=== PATIENT | male | born 1940 | race Caucasian/White ===

== ENCOUNTER 2017-03-03 20:36 | Inpatient (IN) | payer MEDICARE, BC ==
[2017-03-03 21:31] LABS: HEMATOCRIT 38.3 % (41.0-60); HEMOGLOBIN 12.6 gm/dL (12-16); MEAN CELL VOLUME 93.4 fl (80-99); MEAN CORPUSCULAR HEMOGLOBIN 30.8 pg (27.0-31.0); PLATELET COUNT 73 Th/cmm (150-400); RED CELL DISTRIBUTION WIDTH 16.1 % (11.5-20.0); WHITE BLOOD COUNT 9.3 Th/cmm (4.8-10.8)
[2017-03-03] MEDS ORDERED: cefTRIAXone 1 GM in Sodium Chloride 0.9% 50 ML IV ONE (21:34)
[2017-03-03 21:39] LABS: INR 0.98 (0.5-1.4); PROTHROMBIN TIME (TEST) 10.2 SECONDS (9.5-11.5)
[2017-03-03 21:48] LABS: ALB/GLOB RATIO 1.8 (1.0-1.8); ALKALINE PHOSPHATASE 32 U/L (34-104); ANION GAP 16.8 (7.0-16.0); BILIRUBIN,TOTAL 0.8 mg/dL (0.3-1.0); BUN - UREA NITROGEN 70 mg/dL (7-25); BUN/CREATININE RATIO 31.8; CALCIUM SERUM 9.1 mg/dL (8.6-10.3); CARBON DIOXIDE 19.8 mEq/L (21.0-31.0); CHLORIDE 97 mEq/L (98-107); CHOLESTEROL 172 mg/dL (<200); CREATININE - SERUM 2.2 mg/dL (0.7-1.3); GLUCOSE 150 mg/dL (70-105); POTASSIUM SERUM 4.6 mEq/L (3.5-5.1); SGOT 17 U/L (13-39); SGPT/ALT 18 U/L (7-52); SODIUM SERUM 129 mEq/L (136-145); TRIGLYCERIDES 160 mg/dL (<150)
[2017-03-03 22:05] LABS: BAND NEUTROPHILE 5 % (0-10); BASOPHIL 0 % (0-3); EOSINOPHIL 0 % (0-5); NEUTROPHILS 89 % (40-80); PLATELET ESTIMATE DECREASED PLATELETS (NORMAL); PLATELET MORPHOLOGY NORMAL (NORMAL); TOTAL CELLS COUNTED 100
--- NOTE | 2017-03-03 22:42 | ED Physician Chart ---
ED Chief Complaint/HPI - Patient Information Date Seen:: 03/03/17 Time Seen:: 20:40 Chief Complaint:: Fever History of Present Illness:: onset x one day of fever, cough, and congestion; no report of trauma, H/As, S/T , neck pain, C/P, SOB, Abd. Pain, A/N/V/D/C, chills, or urinary s/s Allergies:: Allergies Allergy/AdvReac Type Severity Reaction Status Date / Time levofloxacin [From Levaquin] Allergy Verified 03/03/17 20:40 sulfamethoxazole Allergy Verified 03/03/17 20:40 [From Bactrim] trimethoprim [From Bactrim] Allergy Verified 03/03/17 20:40 warfarin Allergy Verified 03/03/17 20:40 Vitals:: Vital Signs - 8 hr 03/03/17 20:40 Temp 18 F HR 86 BP 111/61 O2 Sat % 93 Historian:: Patient, EMS Review:: Nurse's Note Reviewed, EMS run form Reviewed, Transfer documents Reviewed ED Review of Systems - Review of Systems General/Constitutional: Fever, Chills, No weight loss, Weakness, No diaphoresis , No edema, No loss of appetite Skin: Skin lesions, No rash, No bruising Head: No headache, No light-headedness Eyes: No loss of vision, No pain, No diplopia ENT: No earache, No nasal drainage, No sore throat, No tinnitus Neck: No neck pain, No swelling, No thyromegaly, No stiffness, No mass noted Cardio Vascular: Chest pain, Palpitations, No PND, No orthopnea, No edema Pulmonary: SOB, Cough, No sputum, No wheezing GI: No nausea, No vomiting, No diarrhea, No pain, No melena, No hematochezia, No constipation, No hematemesis G/U: No dysuria, No frequency, No hematuria Musculoskeletal: No bone or joint pain, No back pain, No muscle pain Endocrine: No polyuria, No polydipsia Psychiatric: No prior psych history, No depression, No anxiety, No suicidal ideation Hematopoietic: No bruising, No lymphadenopathy Allergic/Immuno: No urticaria, No angioedema Neurological: No syncope, No focal symptoms, No weakness, No paresthesia, No headache, No seizure, No dizziness, No confusion, No vertigo ED Past Medical History - Past Medical History Obtainable: Yes Past Medical History: No significant medical hx, CAD, Asthma/COPD, DVT/PE, Dyslipidemia, ESRD, Other (Lymphoma) Family History: Diabetes Melitus, HTN, Cancer, DVT/PE Social History: Smoker, No Alcohol, No Drug Use, Single, Care Facility Surgical History: other (Biopsy; Brain Surgery) Psychiatricy History: None Medication: Reviewed Family Medical History - Family Member Mother History Unknown: Yes ED Physical Exam - Physical Examination General/Constitutional: Awake, Well-developed, well-nourished, Alert, No distress, GCS 15, Non-toxic appearing, Ambulatory Head: Atraumatic Eyes: Lids, conjuctiva normal, PERRL, EOMI Skin: Nl inspection, No rash, No skin lesions, No ecchymosis, Well hydrated, No lymphadenopathy ENMT: External ears, nose nl, Nasal exam nl, Lips, teeth, gums nl Neck: Nontender, Full ROM w/o pain, No JVD, No nuchal rigidity, No bruit, No mass, No stridor Respiratory: Nl effort/Exclusion Other Respiratory comments:: Lungs: + Rales and Rhonchi Cardio Vascular: RRR, No murmur, gallop, rubs, NL S1 S2 GI: No tenderness/rebounding/guarding, No organomegaly, No hernia, Normal BS's, Nondistended, No mass/bruits, No McBurney tenderness : No CVA tenderness Extremities: No tenderness or effusion, Full ROM, normal strength in all extremities, No edema, Normal digits & nails Neuro/Psych: Alert/oriented, DTR's symmetric, Normal sensory exam, Normal motor strength, Judgement/insight normal, Mood normal, Normal gait, No focal deficits Misc: Normal back, No paraspinal tenderness ED Labs/Radiology/EKG Results - Lab Results Results: Laboratory Tests 03/03/17 03/03/17 03/03/17 21:04 21:04 21:04 WBC 9.3 RBC 4.10 Hgb 12.6 Hct 38.3 L MCV 93.4 MCH 30.8 MCHC Differential 33.0 RDW 16.1 Plt Count 73 L MPV 8.0 Band Neutrophils % 5 Neutrophils (Manual) 89 H Lymphocytes 4 L Monocytes 2 Eosinophils 0 Basophils 0 Platelet Estimate DECREASED PLATELETS Platelet Morphology NORMAL RBC Morph Micro Appear NORMAL PT INR PTT (Actin FS) D-Dimer 3820 H Sodium 129 L Potassium 4.6 Chloride 97 L Carbon Dioxide 19.8 L Anion Gap 16.8 H BUN 70 H Creatinine 2.2 H Est GFR ( Amer) TNP Est GFR (Non-Af Amer) TNP BUN/Creatinine Ratio 31.8 Glucose 150 H Whole Bld Lactic Acid Calcium 9.1 Total Bilirubin 0.8 AST 17 ALT 18 Alkaline Phosphatase 32 L Creatine Kinase 24 L B-Natriuretic Peptide 156.0 H Total Protein 5.9 L Albumin 3.8 L Globulin 2.1 Albumin/Globulin Ratio 1.8 Triglycerides 160 H Cholesterol 172 LDL Cholesterol Direct 70 L HDL Cholesterol 76 03/03/17 03/03/17 21:04 21:04 WBC RBC Hgb Hct MCV MCH MCHC Differential RDW Plt Count MPV Band Neutrophils % Neutrophils (Manual) Lymphocytes Monocytes Eosinophils Basophils Platelet Estimate Platelet Morphology RBC Morph Micro Appear PT 10.2 INR 0.98 PTT (Actin FS) 21.9 L D-Dimer Sodium Potassium Chloride Carbon Dioxide Anion Gap BUN Creatinine Est GFR ( Amer) Est GFR (Non-Af Amer) BUN/Creatinine Ratio Glucose Whole Bld Lactic Acid 5.69 H* Calcium Total Bilirubin AST ALT Alkaline Phosphatase Creatine Kinase B-Natriuretic Peptide Total Protein Albumin Globulin Albumin/Globulin Ratio Triglycerides Cholesterol LDL Cholesterol Direct HDL Cholesterol Comments:: Na+: 129; BUN: 70; Cr: 2.2; D-Dimer: 3820; BNP: 156; Lactic Acid: 5.69 - Radiology Results Comments:: CXR: + Infiltrate - EKG Interpretations EKG Time:: 21:05 Rate & Rhythm: 82; NSR Comments:: non-specific st-t changes ED Septic Shock - . Is Septic Shock (SBP<90, OR Lactate>4 mmol\L) present?: No - <6hrs of presentation: Vital Signs: Vital Signs - 8 hr 03/03/17 20:40 Temp 18 F HR 86 BP 111/61 O2 Sat % 93 ED Reassessment (Disposition) - Reassessment Reassessment Condition:: Improved - Diagnosis Diagnosis:: Hyponatremia; Dehydration; ESRD; Renal Failure; Pre-Renal Azotemia; DVT; Pulmonary Embolus; PNA; Sepsis; - Aftercare/Follow up Instructions Aftercare/Follow-Up Instructions:: Counseled pt regarding lab results/diagnosis & need follow up, Counseled pt & family regarding lab results/diagnosis & need follow up - Patient Disposition Discharge/Transfer:: Acute Care w/in this hosp Accepting Physician:: Dr. Williamson Time Called:: 2214 Time Responded:: 22:15 Admitted to:: Telemetry Spoke to:: Dr. Williamson Admitting Medical Physician:: Dr. Williamson Condition at Disposition:: Stable, Improved
[2017-03-04] MEDS ORDERED: Maalox 30 mL Cup PO PRN (01:23)
[2017-03-04] MEDS ORDERED: Magnesium Hydroxide (MOM) 30 mL UDC PO PRN (01:23)
[2017-03-04] MEDS ORDERED: Hydrocodone/APAP 5mg/325mg Tab PO PRN (01:23)
[2017-03-04] MEDS ORDERED: Albuterol Nebulizer 2.5mg/3mL HHN PRN (01:57)
--- NOTE | 2017-03-04 07:33 | Diagnostic Imaging Report ---
CHEST X-RAY: AP view INDICATION: pain COMPARISON: None FINDINGS: Small bilateral effusions are noted with bibasal airspace disease. Biapical pleural thickening is seen. Cardiomegaly is noted. Left-sided Port-A-Cath is seen with tip not well-visualized and possibly the left brachiocephalic vein region. Degenerative changes of the spine are noted. IMPRESSION: Small bilateral effusions and bibasal airspace disease. Atelectasis versus infiltrate of the lung bases cannot be excluded. Ill-defined biapical thickening with mild prominence of the upper mediastinal borders. Lymphadenopathy or other mass lesions cannot be excluded. Short-term follow-up CT chest with IV contrast would provide additional detail and assessment. Cardiomegaly.
--- NOTE | 2017-03-04 08:04 | Diagnostic Imaging Report ---
Nuclear medicine VQ scan HISTORY: Shortness of breath, rule out pulmonary embolus COMPARISON: Chest x-ray the same day Technique/procedure: For the ventilation portion of examination 40.5 mCi of technetium labeled DTPA was administered via aerosol and multiple scintigraphic images of the lungs were obtained. For the perfusion portion of examination 5.2 millicuries of technetium 99 labeled MAA was administered intravenously and multiple scintigraphic images of the lungs were obtained. Exam is limited due to patient positioning and technical factors. There appears to be a moderate-sized matched defect along the peripheral aspect of the left lung best seen on the left lateral view. IMPRESSION: Limited exam. Overall the exam is low to intermediate probability VQ scan for pulmonary embolus. If clinically feasible CT angiography, PE study may be obtained for further assessment.
[2017-03-04] MEDS ORDERED: D5-0.45NS 1,000 ML IV SCH (09:00)
[2017-03-04] MEDS: Fluticasone Propionate 0.05mg/Actuation 16gm Nasal Spray NS SCH (09:00)
[2017-03-04] MEDS: Triamcinolone Acetonide 0.1% Cream 15 gm TP SCH ×2 (09:00→17:54)
[2017-03-04 09:28] LABS: ABG SOURCE Arterial; ALLEN TEST YES; BE(B) -3.2 mEq/L (-3.0-3.0); FIO2 100; HCO3 22.4 mEq/L (20.0-26.0); pH 7.36 (7.35-7.45)
[2017-03-04] MEDS ORDERED: Enoxaparin 100 mg/mL 1mL Syr SUBQ SCH (10:00)
--- NOTE | 2017-03-04 11:09 | Diagnostic Imaging Report ---
Portable chest x-ray HISTORY: Shortness of breath Compared with prior exam of March 03, 2017, the heart remains enlarged. Evidence of persistent left pleural effusion. Evidence of small right pleural effusion also noted. There remains abnormal density and widening of the mediastinum. Lymphadenopathy cannot be excluded. There appears to be narrowing of the lower trachea above the debra. A CT scan would provide additional assessment and evaluation. IMPRESSION: 1. Persistent marked mediastinal widening that may be associated with lymphadenopathy. Suggestion of a degree of narrowing of the lower trachea. A CT scan is recommended for further assessment and evaluation. 2. Cardiomegaly 3. Bilateral pleural effusions (left greater than right).
--- NOTE | 2017-03-04 11:25 | Diagnostic Imaging Report ---
Bilateral lower extremity DVT study HISTORY: Pain COMPARISON: None Technique: Longitudinal and transverse sonographic images of the bilateral lower extremity veins were obtained with doppler analysis. FINDINGS: Exam of the right side demonstrates thrombus extending from the right common femoral vein to the right superficial femoral vein. The remaining basal right lower extremity are patent. Exam of the left side demonstrates thrombus within the left common femoral, proximal left superficial femoral and left popliteal veins. The remaining veins of the left lower extremity are patent. IMPRESSION: Findings consistent with bilateral deep venous thrombosis. Please refer to above for details. The final results were administered to the referring team on 03/04/2017.
--- NOTE | 2017-03-04 14:08 | Diagnostic Imaging Report ---
Head CT without intravenous contrast Indication: pain, rule out bleed Comparison: None Technique: Axial images were obtained from the vertex to the skull base without IV contrast. Coronal reconstructions were made. Total DLP: 991, [id number] FINDINGS: Images of the brain obtained without contrast demonstrate no acute hemorrhage. No mass lesions identified. The ventricles and basal cisterns are patent. The hdez-white matter differentiation is preserved. There is no mass effect or midline shift. Mild atrophy is noted. No skull fractures identified. No soft tissue swelling. The paranasal sinuses are clear. IMPRESSION: No acute intracranial abnormality. Mild atrophy.
[2017-03-04] MEDS ORDERED: FUROSEMIDE IV ONE (14:10)
[2017-03-04] MEDS ORDERED: DEXTROSE 5% IV ONE (14:10)
[2017-03-04] MEDS: Albuterol/Ipratropium Neb 3 ML AERS HHN SCH ×3 (15:13→22:27)
--- NOTE | 2017-03-04 19:19 | Consultation ---
DATE OF CONSULTATION: 03/04/2017 HEMATOLOGY-ONCOLOGY CONSULTATION REFERRING PHYSICIAN: William Williamson M.D. REASON FOR CONSULTATION: Lymphoma and pulmonary embolism. HISTORY OF PRESENT ILLNESS: The patient is a 76-year-old male who has extensive medical history. He was recently hospitalized at [facility] and had mediastinoscopy with lymph node biopsy. The pathology is not available. He presented through the ER with shortness of breath and had lower extremity duplex confirming deep vein thrombosis in both lower extremities and V/Q scan was intermediate probability for pulmonary emboli. The patient is now requiring BiPAP and is on Levophed. His history is gathered from the records and from talking to the beside. The patient is on BiPAP, unable to provide any history. The records indicated that he had a history of non-Hodgkin lymphoma ____ of the retroperitoneum 3 or 4 years ago and was treated with chemotherapy. He has been short of breath in the past few weeks and that was the main reason for admission to [facility] on 02/08/2017. The patient also had a history of venous thrombosis and inferior vena cava filter placement and has a history of intracranial hemorrhage 3 years ago, chronic kidney disease and atrial fibrillation. PAST MEDICAL HISTORY: As mentioned above. SOCIAL HISTORY: Former smoker. . MEDICATIONS: Reviewed. He is on cefepime, ceftriaxone, Pepcid and Neurontin. He received one dose of 100 mg of Lovenox. PHYSICAL EXAMINATION: GENERAL: He is chronically ill looking, awake, follows commands, on BiPAP. VITAL SIGNS: Afebrile, blood pressure 95/51. HEENT: Atraumatic. NECK: Obese. There is a scar on the lower neck from mediastinoscopy. CHEST: Equal air entry. ABDOMEN: Obese, soft. EXTREMITIES: Hyperpigmentation on both lower extremities indication of chronic venous stasis. LABORATORY DATA: Platelets 73, white count and hemoglobin are normal. BUN 70, creatinine 2.2. V/Q scan intermediate probability venous duplex lower extremities as mentioned above. ASSESSMENT: Venous thrombosis in both lower extremities and pulmonary emboli in this patient with a history of lymphoma and presented with severe shortness of breath and impending respiratory failure as well as hypertension ____ the TPA would be administered; however, the patient has multiple comorbidities and history of intracranial bleed, that make the risk of using TPA is too high. Therefore, I will proceed with unfractionated heparin. After doing CT scan of the head, confirming there is no bleeding in the head ____ the patient and are concerned about that, the patient is not a candidate for bnf-hbinxtedx-lozxrm heparin with the elevated creatinine and BUN. I will also obtain the pathology from Natalie on the mediastinoscopy to guide the further management beyond this point. The patient is in a critical condition and all questions were answered to the at the bedside. Thank you, Dr. Williamson for the opportunity to participate in the care of this interesting case with you. JOB# [id number]
[2017-03-04] MEDS: Heparin 25,000 Units In D5W 25,000 UNITS/250 ML BAG IV PRN (19:40)
--- NOTE | 2017-03-04 20:59 | History & Physical ---
ADMIT DATE: 03/04/2017 CHIEF COMPLAINT: This patient basically came from residential and complaining of body aches and pains and the patient known to have extensive history of lymphoma. HISTORY OF PRESENT ILLNESS: The patient is 76-year-old. The patient has history of lymph node biopsy with short of breath and he has bilateral leg pain and also V/Q scan, which was negative. The patient was on BiPAP and has history of non-Hodgkin's lymphoma. The patient with history of thrombosis and history of intracranial hemorrhage 3 years ago. PAST MEDICAL HISTORY: Again history of non-Hodgkin's lymphoma, History of inferior vena cava filter placement, and also history of DVTs. The patient was initially admitted and later on the patient had a problem with a low blood pressure, was given fluids, was transferred to ICU, and sliver former saw the patient. PHYSICAL EXAMINATION: HEAD: Normal. ENT: Normal. LUNGS: Bilaterally clear. CARDIOVASCULAR SYSTEM: S1, S2 heard. ABDOMEN: Soft. Bowel sounds are heard. CENTRAL NERVOUS SYSTEM: Decreased sensorium. DIAGNOSES: Severe hypotension, history of lymphoma, venous thrombosis, history of respiratory distress with respiratory failure. PLAN: The patient is being admitted and I will go ahead and continue his antibiotics and we will have Dr. Lopez see the patient on ID and Dr. Nolasco see the patient on hematology, and also have Dr. Walsh see the patient. I will follow the patient. JOB# [id number]
[2017-03-04] MEDS: Cefepime 1 GM in Sodium Chloride 0.9% 50 ML IV SCH (21:06)
[2017-03-04] MEDS ORDERED: cefTRIAXone 1 GM in Sodium Chloride 0.9% 50 ML IV SCH (22:00)
[2017-03-05] MEDS: Albuterol/Ipratropium Neb 3 ML AERS HHN SCH ×6 (02:32→23:08)
--- NOTE | 2017-03-05 03:32 | Consultation ---
DATE OF CONSULTATION: 03/04/2017 PATIENT OF: William Williamson M.D. HISTORY AND PHYSICAL: This is a 76-year-old male patient who came to the Emergency Room and admitted to the regular floor for respiratory failure which gradually deteriorated. The patient became hypotensive with respiratory failure. The patient was put on BiPAP, Levophed and transferred to ICU and cardiac consult is requested. PAST MEDICAL HISTORY: Respiratory failure, atrial fibrillation, BPH, COPD, non-Hodgkin lymphoma with chemotherapy and mediastinotomy, DVT in both lower extremities with IVC filter, low back pain, obesity, rotator cuff tear. FAMILY HISTORY: Unremarkable. SOCIAL HISTORY: No history of smoking, alcohol abuse at the present time. ALLERGIES: The patient is allergic to Bactrim, Levaquin, and Coumadin. FAMILY HISTORY: Unremarkable. SOCIAL HISTORY: No history of smoking, alcohol abuse. PHYSICAL EXAMINATION: VITAL SIGNS: Blood pressure 70 systolic, on Levophed; pulse 100, irregular; respirations 28. HEAD: Normocephalic. No lumps or bumps. EYES: Pupils equal and reactive to light. Fundi show AV nicking. Sclerae white. Conjunctivae pink. NECK: Carotid 2+. Normal upstroke. JVD flat. Thyroid not palpable. Lymph nodes not palpable. CHEST: Shows increased AP diameter. No kyphosis, scoliosis. LUNGS: Bilateral bronchovesicular breath sounds. Bilateral wheezing, rhonchi, rales. HEART: PMI sixth intercostal space or lateral to midclavicular line. S1, S2. S3, S4. Systolic murmur, grade 2/6, lower left sternal border without radiation. ABDOMEN: Soft. Liver and spleen not palpable. No organomegaly. Bowel sounds active. NEUROLOGIC: Unremarkable. EXTREMITIES: Peripheral pulses 1+, pedal edema 2+. CLINICAL IMPRESSION: Acute respiratory failure, on BiPAP; hypotension, on Levophed; atrial fibrillation; BPH; COPD; non-Hodgkin lymphoma, DVT in both legs with IVC filter, low back pain, obesity, rotator cuff tear. The patient has intracranial hemorrhage secondary to anticoagulation. The patient is full code. CKD, stage II. PLAN: Admit the patient. We will start the patient on Levophed. No anticoagulation in view of cerebral bleed and control the heart rate, have pulmonary consult. Put the patient on BiPAP. JOB# [id number]
[2017-03-05 05:08] LABS: HEMATOCRIT 38.5 % (41.0-60); HEMOGLOBIN 12.8 gm/dL (12-16); MEAN CELL VOLUME 93.1 fl (80-99); MEAN CORPUSCULAR HEMOGLOBIN 31.1 pg (27.0-31.0); MEAN CORPUSCULAR HGB CONC 33.4 pg (28.0-36.0); MEAN PLATELET VOLUME 7.5 fl; PLATELET COUNT 76 Th/cmm (150-400); RED BLOOD COUNT 4.13 Mil/cmm (3.80-5.80); RED CELL DISTRIBUTION WIDTH 15.7 % (11.5-20.0); WHITE BLOOD COUNT 10.6 Th/cmm (4.8-10.8)
[2017-03-05 05:13] LABS: ALB/GLOB RATIO 1.9 (1.0-1.8); ALKALINE PHOSPHATASE 31 U/L (34-104); ANION GAP 18.2 (7.0-16.0); BILIRUBIN,TOTAL 0.9 mg/dL (0.3-1.0); BUN - UREA NITROGEN 79 mg/dL (7-25); BUN/CREATININE RATIO 31.6; CALCIUM SERUM 8.8 mg/dL (8.6-10.3); CARBON DIOXIDE 19.8 mEq/L (21.0-31.0); CHLORIDE 97 mEq/L (98-107); CREATININE - SERUM 2.5 mg/dL (0.7-1.3); GLUCOSE 146 mg/dL (70-105); MAGNESIUM 2.4 mg/dL (1.9-2.7); PHOSPHOROUS 6.6 mg/dL (2.5-5.0); SGOT 18 U/L (13-39); SGPT/ALT 17 U/L (7-52); SODIUM SERUM 130 mEq/L (136-145); URIC ACID 13.3 mg/dL (4.4-7.6)
[2017-03-05 06:17] LABS: URINE BILIRUBIN NEGATIVE (NEGATIVE); URINE BLOOD NEGATIVE (NEGATIVE); URINE GLUCOSE (UA) NEGATIVE (NEGATIVE); URINE KETONE NEGATIVE (NEGATIVE); URINE PROTEIN NEGATIVE (NEGATIVE); URINE UROBILINOGEN 0.2 E.U./dL (0.2 - 1.0)
[2017-03-05 06:33] LABS: URINE COLOR YELLOW
[2017-03-05 06:40] LABS: URINE BACTERIA OCCASIONAL /hpf (NONE SEEN); URINE EPITHELIAL CELLS OCCASIONAL /lpf (FEW); URINE RBC 0-2 /hpf (0-5); URINE WBC 0-2 /hpf (0-5)
[2017-03-05 07:23] LABS: BAND NEUTROPHILE 2 % (0-10); NEUTROPHILS 97 % (40-80); TOTAL CELLS COUNTED 100
[2017-03-05 07:24] LABS: PLATELET ESTIMATE DECREASED PLATELETS (NORMAL)
[2017-03-05 08:49] LABS: BE(B) -6.5 mEq/L (-3.0-3.0); HCO3 19.9 mEq/L (20.0-26.0); pH 7.27 (7.35-7.45)
[2017-03-05 08:50] LABS: ABG SOURCE Arterial; ALLEN TEST YES; FIO2 100; MECH RATE 14; PS 6
--- NOTE | 2017-03-05 08:50 | Diagnostic Imaging Report ---
Exam: Chest x-ray. HISTORY: Shortness of breath. Findings: Portable upright examination of chest at 0826 hours reviewed the study compared to prior exam of the early. The study again demonstrates left lower lobe infiltrate superimposed effusion. Small right pleural effusion is present. The heart is enlarged. Left subclavian catheter unchanged appearance. Bony thorax intact. IMPRESSION: Unchanged compared to prior examination of the earlier
[2017-03-05] MEDS: Triamcinolone Acetonide 0.1% Cream 15 gm TP SCH ×2 (09:24→17:34)
[2017-03-05] MEDS: Fluticasone Propionate 0.05mg/Actuation 16gm Nasal Spray NS SCH (09:24)
[2017-03-05] MEDS: Cefepime 1 GM in Sodium Chloride 0.9% 50 ML IV SCH ×2 (09:50→21:11)
--- NOTE | 2017-03-05 11:44 | Diagnostic Imaging Report ---
Exam: Chest portable upright HISTORY: Intubation. Findings: Portable examination of the chest upright at 1108 hours reviewed, compatible prior study the early demonstrates endotracheal tube with the tip 3 cm above the debra. Left subclavian catheter unchanged position. The heart is enlarged. There is evidence for left basilar infiltrate superimposed effusion unchanged upper approximation. Right basilar atelectasis and effusion appreciated. There is NG tube which passes into the stomach. Right basilar atelectasis small effusion appreciated. IMPRESSION: 1. Interval placement of endotracheal tube 3 cm above the debra. NG tube with tip in stomach. 2. Predominantly left base infiltrate with superimposed effusion unchanged compared to prior examination.
[2017-03-05] MEDS: Heparin 25,000 Units In D5W 25,000 UNITS/250 ML BAG IV PRN (12:00)
[2017-03-05 12:22] LABS: pH 7.26 (7.35-7.45)
[2017-03-05 12:23] LABS: ABG SOURCE Arterial; ALLEN TEST YES; HCO3 20.2 mEq/L (20.0-26.0); MECH RATE 16
[2017-03-05 12:24] LABS: FIO2 100; MECH VT 500
[2017-03-05] MEDS ORDERED: Probiotic Screen MC PRN (13:58)
--- NOTE | 2017-03-05 14:03 | General Progress Note ---
Subjective - Review of Systems Service Date: 03/05/17 Subjective: stuporous, on vent Objective - Results Result Diagrams: 03/05/17 04:38 03/05/17 04:38 Recent Labs: Laboratory Last Values WBC 10.6 Th/cmm (4.8-10.8) 03/05/17 04:38 RBC 4.13 Mil/cmm (3.80-5.80) 03/05/17 04:38 Hgb 12.8 gm/dL (12-16) 03/05/17 04:38 Hct 38.5 % (41.0-60) L 03/05/17 04:38 MCV 93.1 fl (80-99) 03/05/17 04:38 MCH 31.1 pg (27.0-31.0) H 03/05/17 04:38 MCHC Differential 33.4 pg (28.0-36.0) 03/05/17 04:38 RDW 15.7 % (11.5-20.0) 03/05/17 04:38 Plt Count 76 Th/cmm (150-400) L 03/05/17 04:38 MPV 7.5 fl 03/05/17 04:38 Band Neutrophils % 2 % (0-10) 03/05/17 04:38 Neutrophils (Manual) 97 % (40-80) H 03/05/17 04:38 Lymphocytes 1 % (20-50) L 03/05/17 04:38 Monocytes 2 % (2-10) 03/03/17 21:04 Eosinophils 0 % (0-5) 03/03/17 21:04 Basophils 0 % (0-3) 03/03/17 21:04 Platelet Estimate DECREASED PLATELETS (NORMAL) 03/05/17 04:38 Platelet Morphology NORMAL (NORMAL) 03/03/17 21:04 RBC Morph Micro Appear NORMAL (NORMAL) 03/03/17 21:04 Eos Smear Source URINE 03/05/17 05:30 Eos Smear Total Cells NONE SEEN (NONE SEEN) 03/05/17 05:30 PT 10.2 SECONDS (9.5-11.5) 03/03/17 21:04 INR 0.98 (0.5-1.4) 03/03/17 21:04 PTT (Actin FS) 122.2 SECONDS (26.0-38.0) H* 03/05/17 07:50 D-Dimer 3820 ng/mL (100-400) H 03/03/17 21:04 Specimen Source Arterial 03/05/17 12:15 Sample Site Right Radial 03/05/17 12:15 pH 7.26 (7.35-7.45) L 03/05/17 12:15 pCO2 47.0 mmHg (35.0-45.0) H 03/05/17 12:15 pO2 80.0 mmHg (80.0-100.0) 03/05/17 12:15 HCO3 20.2 mEq/L (20.0-26.0) 03/05/17 12:15 Base Excess -6.0 mEq/L (-3.0-3.0) L 03/05/17 12:15 O2 Saturation 94.0 % (92.0-100.0) 03/05/17 12:15 Adan Test YES 03/05/17 12:15 Vent Rate 16 03/05/17 12:15 Inspired O2 100 03/05/17 12:15 Tidal Volume 500 03/05/17 12:15 PEEP 5 03/05/17 12:15 Pressure (ins/psv/peep) NA 03/05/17 12:15 Critical Value E.BRENNAN 03/05/17 12:15 Sodium 130 mEq/L (136-145) L 03/05/17 04:38 Potassium 5.0 mEq/L (3.5-5.1) 03/05/17 04:38 Chloride 97 mEq/L (98-107) L 03/05/17 04:38 Carbon Dioxide 19.8 mEq/L (21.0-31.0) L 03/05/17 04:38 Anion Gap 18.2 (7.0-16.0) H 03/05/17 04:38 BUN 79 mg/dL (7-25) H 03/05/17 04:38 Creatinine 2.5 mg/dL (0.7-1.3) H 03/05/17 04:38 Est GFR ( Amer) TNP 03/05/17 04:38 Est GFR (Non-Af Amer) TNP 03/05/17 04:38 BUN/Creatinine Ratio 31.6 03/05/17 04:38 Glucose 146 mg/dL (70-105) H 03/05/17 04:38 POC Glucose 74 MG/DL (70 - 105) 03/04/17 08:34 Whole Bld Lactic Acid 2.77 mmol/L (0.60-1.99) H* 03/05/17 06:40 Uric Acid 13.3 mg/dL (4.4-7.6) H 03/05/17 04:38 Calcium 8.8 mg/dL (8.6-10.3) 03/05/17 04:38 Phosphorus 6.6 mg/dL (2.5-5.0) H 03/05/17 04:38 Magnesium 2.4 mg/dL (1.9-2.7) 03/05/17 04:38 Total Bilirubin 0.9 mg/dL (0.3-1.0) 03/05/17 04:38 AST 18 U/L (13-39) 03/05/17 04:38 ALT 17 U/L (7-52) 03/05/17 04:38 Alkaline Phosphatase 31 U/L (34-104) L 03/05/17 04:38 Ammonia 71 umol/L (16-53) H 03/05/17 04:38 Creatine Kinase 24 U/L (30-223) L 03/03/17 21:04 Troponin I 0.02 ng/mL (0.01-0.05) 03/03/17 21:04 B-Natriuretic Peptide 95.9 pg/mL (5.0-100.0) 03/05/17 04:38 Total Protein 5.7 gm/dL (6.0-8.3) L 03/05/17 04:38 Albumin 3.7 gm/dL (4.2-5.5) L 03/05/17 04:38 Globulin 2.0 gm/dL 03/05/17 04:38 Albumin/Globulin Ratio 1.9 (1.0-1.8) H 03/05/17 04:38 Triglycerides 160 mg/dL (<150) H 03/03/17 21:04 Cholesterol 172 mg/dL (<200) 03/03/17 21:04 LDL Cholesterol Direct 70 mg/dL (75-193) L 03/03/17 21:04 HDL Cholesterol 76 mg/dL (23-92) 03/03/17 21:04 TSH 0.37 uIU/ml (0.34-5.60) 03/05/17 04:38 Urine Source MIDSTREAM 03/05/17 05:30 Urine Color YELLOW 03/05/17 05:30 Urine Clarity CLEAR (CLEAR) 03/05/17 05:30 Urine pH 5.0 (4.6 - 8.0) 03/05/17 05:30 Ur Specific [place] 1.020 (1.005-1.030) 03/05/17 05:30 Urine Protein NEGATIVE mg/dL (NEGATIVE) 03/05/17 05:30 Urine Glucose (UA) NEGATIVE mg/dL (NEGATIVE) 03/05/17 05:30 Urine Ketones NEGATIVE mg/dL (NEGATIVE) 03/05/17 05:30 Urine Blood NEGATIVE (NEGATIVE) 03/05/17 05:30 Urine Nitrate NEGATIVE (NEGATIVE) 03/05/17 05:30 Urine Bilirubin NEGATIVE (NEGATIVE) 03/05/17 05:30 Urine Urobilinogen 0.2 E.U./dL (0.2 - 1.0) 03/05/17 05:30 Ur Leukocyte Esterase NEGATIVE (NEGATIVE) 03/05/17 05:30 Urine RBC 0-2 /hpf (0-5) H 03/05/17 05:30 Urine WBC 0-2 /hpf (0-5) 03/05/17 05:30 Ur Epithelial Cells OCCASIONAL /lpf (FEW) 03/05/17 05:30 Urine Bacteria OCCASIONAL /hpf (NONE SEEN) 03/05/17 05:30 Fine Granular Casts 2-5 /lpf (NONE SEEN) H 03/05/17 05:30 Urine Mucus FEW /lpf (FEW) 03/05/17 05:30 Ur Random Sodium < 10 mmol/L 03/05/17 05:30 Urine Creatinine 109.2 mg/dl (39.0-259.0) 03/05/17 05:30 - Physical Exam Vitals and I&O: Vital Signs Temp 97.1 F 03/05/17 11:00 Pulse 82 03/05/17 12:56 Resp 22 03/05/17 11:00 BP 103/59 03/05/17 11:00 Pulse Ox 96 03/05/17 12:56 Intake & Output 03/04/17 03/05/17 03/05/17 18:59 06:59 18:59 Intake Total 120 376.365 300 Output Total 625 200 Balance -505 176.365 300 Weight (lbs) 101.423 kg 102.115 kg Intake: Intake, IV Amount 226.365 300 Cefepime 1 gm In Sodium 50 50 Chloride 0.9% 50 ml @ 100 mls/hr IV Q12HR [facility] Rx#: [id number] Heparin 25,000 Units In 250 D5W 25,000 units In 250 ml @ Titrate IV TITR PRN Rx#:[id number] Norepinephrine 4 mg In 126.365 Dextrose 5% 250 ml @ 8 MCG/MIN 30.48 mls/hr IV TITR PRN Rx#:[id number] cefTRIAXone 1 gm In 50 Sodium Chloride 0.9% 50 ml @ 100 mls/hr IV Q24HR [facility] Rx#:[id number] Oral 120 150 Output: Urine 625 200 Other: # Voids 1 # Bowel Movements 0 0 Active Medications: Current Medications Acetaminophen (Tylenol) 650 mg PO Q6HR PRN PRN Reason: Pain (Mild) Stop: 05/03/17 01:22 Acetaminophen (Tylenol) 650 mg PO Q6HR PRN PRN Reason: Fever > 101 Stop: 05/03/17 01:22 Acetaminophen/Hydrocodone Bitart ([place] 5mg/325mg) 1 tab PO Q4HR PRN PRN Reason: Pain (Moderate) Stop: 05/03/17 01:22 Acetaminophen/Hydrocodone Bitart ([place] 5mg/325mg) 2 tab PO Q4HR PRN PRN Reason: Severe Pain Stop: 05/03/17 01:22 Al Hydrox/Mg Hydrox/Simethicone (Maalox) 15 ml PO Q3HR PRN PRN Reason: Indigestion Stop: 05/03/17 01:22 Albuterol Sulfate (Albuterol 2.5mg/3ml Neb Ud) 2.5 mg HHN Q4H PRN PRN Reason: Shortness of Breath or Wheeze Stop: 05/03/17 01:56 Last Admin: 03/04/17 08:17 Dose: 2.5 mg Albuterol/Ipratropium (Duoneb Neb) 3 ml HHN Q4HRT [facility] Stop: 05/03/17 14:59 Last Admin: 03/05/17 12:55 Dose: 3 ml Alprazolam (Xanax) 0.5 mg PO BID [facility] PRN Reason: Protocol Stop: 05/03/17 21:14 Last Admin: 03/05/17 09:18 Dose: 0.5 mg Amiodarone HCl (Cordarone) 200 mg PO BID [facility] Stop: 05/03/17 08:59 Last Admin: 03/05/17 09:18 Dose: 200 mg Famotidine (Pepcid) 20 mg PO DAILY [facility] Stop: 05/03/17 08:59 Last Admin: 03/05/17 09:18 Dose: 20 mg Fluticasone Propionate (Flonase) 1 spr NS DAILY [facility] Stop: 05/03/17 08:59 Last Admin: 03/05/17 09:24 Dose: 1 spr Gabapentin (Neurontin) 100 mg PO DAILY [facility] Stop: 05/03/17 08:59 Last Admin: 03/05/17 09:18 Dose: 100 mg Gabapentin (Neurontin) 200 mg PO HS [facility] Stop: 05/03/17 20:59 Last Admin: 03/04/17 20:51 Dose: 200 mg Ceftriaxone Sodium 1 gm/ (Sodium Chloride) 50 mls @ 100 mls/hr IV Q24HR [facility] Stop: 05/03/17 21:59 Last Infusion: 03/04/17 22:45 Dose: Infused Norepinephrine Bitartrate 4 mg (/ Dextrose) 254 mls @ 30.48 mls/hr IV TITR PRN ; Protocol; 8 MCG/MIN PRN Reason: BP MAINTENANCE (PER PROTOCOL) Stop: 05/03/17 09:32 Last Titration: 03/05/17 05:00 Dose: 0 mcg/min, 0 mls/hr Cefepime HCl 1 gm/ Sodium (Chloride) 50 mls @ 100 mls/hr IV Q12HR [facility] Stop: 05/03/17 20:59 Last Infusion: 03/05/17 10:20 Dose: Infused Heparin Sodium/Dextrose (Heparin Drip) 25,000 units in 250 mls @ 0 mls/hr IV TITR PRN; Protocol; Titrate PRN Reason: PROTOCOL Stop: 05/03/17 13:30 Last Admin: 03/05/17 12:00 Dose: 17 units/kg/hr, 17.242 mls/hr Lorazepam (Ativan) 2 mg IVP Q4HR PRN; Protocol PRN Reason: Agitation Stop: 05/04/17 11:53 Magnesium Hydroxide (Milk Of Magnesia) 30 ml PO HS PRN PRN Reason: Constipation Stop: 05/03/17 01:22 Methylprednisolone Sodium Succinate (Solu-Medrol) 80 mg IV Q6HR [facility]E Stop: 05/03/17 17:59 Last Admin: 03/05/17 11:59 Dose: 80 mg Miscellaneous (Umeclidinium Brm/Vilanterol Tr [Anoro Ellipta 62.5-25 Mcg Inh]) 1 each IH DAILY CRISTIANE Stop: 05/03/17 08:59 Miscellaneous (Pharmacy To Dose) 1 ea MC PRN [facility]STIANE Stop: 05/03/17 11:59 Prednisone (Deltasone) 40 mg PO DAILY [facility]E Stop: 05/03/17 08:59 Last Admin: 03/05/17 09:17 Dose: 40 mg Tamsulosin HCl (Flomax) 0.4 mg PO HS [facility]E Stop: 05/03/17 20:59 Last Admin: 03/04/17 20:51 Dose: 0.4 mg Triamcinolone Acetonide (Kenalog 0.1%) 1 appl TP BID [facility]E Stop: 05/03/17 08:59 Last Admin: 03/05/17 09:24 Dose: 1 appl General: No acute distress HEENT: Atraumatic, Mucous membr. moist/pink Neck: Supple, +2 carotid pulse wo bruit Cardiovascular: Regular rate, Normal S1, Normal S2 Lungs: Other (few rhonchi) Abdomen: Bowel sounds, Soft Extremities: Edema (mild) Neurological: Sensation intact Skin: no Rash Psych/Mental Status: Mood NL - Procedures Procedures: Procedures Procedure Code Date ASSISTANCE WITH RESPIRATORY VENTILATION, 24-96 HRS, CPAP [id number] 03/03/17 POS AIRWAY PRESSURE CPAP 26241 03/03/17 Assessment/Plan - Assessment Assessment: TIESHA on CKD NHL s/p Mediastinoscopy w/ biopsy Acute resp failure on vent P. A. fib B/L DVT Morbid Obesity JEAN Left LL HAP - Plan Plan: Lab - Result Diagrams 03/05/17 04:38 03/05/17 04:38 Current Medications Acetaminophen (Tylenol) 650 mg PO Q6HR PRN PRN Reason: Pain (Mild) Stop: 05/03/17 01:22 Acetaminophen (Tylenol) 650 mg PO Q6HR PRN PRN Reason: Fever > 101 Stop: 05/03/17 01:22 Acetaminophen/Hydrocodone Bitart ([place] 5mg/325mg) 1 tab PO Q4HR PRN PRN Reason: Pain (Moderate) Stop: 05/03/17 01:22 Acetaminophen/Hydrocodone Bitart ([place] 5mg/325mg) 2 tab PO Q4HR PRN PRN Reason: Severe Pain Stop: 05/03/17 01:22 Al Hydrox/Mg Hydrox/Simethicone (Maalox) 15 ml PO Q3HR PRN PRN Reason: Indigestion Stop: 05/03/17 01:22 Albuterol Sulfate (Albuterol 2.5mg/3ml Neb Ud) 2.5 mg HHN Q4H PRN PRN Reason: Shortness of Breath or Wheeze Stop: 05/03/17 01:56 Last Admin: 03/04/17 08:17 Dose: 2.5 mg Albuterol/Ipratropium (Duoneb Neb) 3 ml HHN Q4HRT [facility]E Stop: 05/03/17 14:59 Last Admin: 03/05/17 12:55 Dose: 3 ml Alprazolam (Xanax) 0.5 mg PO BID [facility] PRN Reason: Protocol Stop: 05/03/17 21:14 Last Admin: 03/05/17 09:18 Dose: 0.5 mg Amiodarone HCl (Cordarone) 200 mg PO BID [facility] Stop: 05/03/17 08:59 Last Admin: 03/05/17 09:18 Dose: 200 mg Famotidine (Pepcid) 20 mg PO DAILY [facility]E Stop: 05/03/17 08:59 Last Admin: 03/05/17 09:18 Dose: 20 mg Fluticasone Propionate (Flonase) 1 spr NS DAILY [facility]ST[facility]E Stop: 05/03/17 08:59 Last Admin: 03/05/17 09:24 Dose: 1 spr Gabapentin (Neurontin) 100 mg PO DAILY [facility]E Stop: 05/03/17 08:59 Last Admin: 03/05/17 09:18 Dose: 100 mg Gabapentin (Neurontin) 200 mg PO HS [facility]E Stop: 05/03/17 20:59 Last Admin: 03/04/17 20:51 Dose: 200 mg Ceftriaxone Sodium 1 gm/ (Sodium Chloride) 50 mls @ 100 mls/hr IV Q24HR [facility] Stop: 05/03/17 21:59 Last Infusion: 03/04/17 22:45 Dose: Infused Norepinephrine Bitartrate 4 mg (/ Dextrose) 254 mls @ 30.48 mls/hr IV TITR PRN ; Protocol; 8 MCG/MIN PRN Reason: BP MAINTENANCE (PER PROTOCOL) Stop: 05/03/17 09:32 Last Titration: 03/05/17 05:00 Dose: 0 mcg/min, 0 mls/hr Cefepime HCl 1 gm/ Sodium (Chloride) 50 mls @ 100 mls/hr IV Q12HR [facility] Stop: 05/03/17 20:59 Last Infusion: 03/05/17 10:20 Dose: Infused Heparin Sodium/Dextrose (Heparin Drip) 25,000 units in 250 mls @ 0 mls/hr IV TITR PRN; Protocol; Titrate PRN Reason: PROTOCOL Stop: 05/03/17 13:30 Last Admin: 03/05/17 12:00 Dose: 17 units/kg/hr, 17.242 mls/hr Lorazepam (Ativan) 2 mg IVP Q4HR PRN; Protocol PRN Reason: Agitation Stop: 05/04/17 11:53 Magnesium Hydroxide (Milk Of Magnesia) 30 ml PO HS PRN PRN Reason: Constipation Stop: 05/03/17 01:22 Methylprednisolone Sodium Succinate (Solu-Medrol) 80 mg IV Q6HR [facility] Stop: 05/03/17 17:59 Last Admin: 03/05/17 11:59 Dose: 80 mg Miscellaneous (Umeclidinium Brm/Vilanterol Tr [Anoro Ellipta 62.5-25 Mcg Inh]) 1 each IH DAILY [facility]E Stop: 05/03/17 08:59 Miscellaneous (Pharmacy To Dose) 1 ea MC PRN CRISTIANE Stop: 05/03/17 11:59 Prednisone (Deltasone) 40 mg PO DAILY [facility]E Stop: 05/03/17 08:59 Last Admin: 03/05/17 09:17 Dose: 40 mg Tamsulosin HCl (Flomax) 0.4 mg PO HS [facility]E Stop: 05/03/17 20:59 Last Admin: 03/04/17 20:51 Dose: 0.4 mg Triamcinolone Acetonide (Kenalog 0.1%) 1 appl TP BID [facility]E Stop: 05/03/17 08:59 Last Admin: 03/05/17 09:24 Dose: 1 appl Lab - Result Diagrams 03/05/17 04:38 03/05/17 04:38 BUN/CR up to 79/2.5 Na same @ 130 monitor fluid status closely f/u electrolytes Nutritional Asmnt/Malnutr-PDOC - Dietary Evaluation Malnutrition Findings (Please click <Entered> for more info): Nutritional Asmnt/Malnutrition Start: 03/05/17 12: 23 Text: Status: Complete Freq: Document 03/05/17 12:23 GSUN (Rec: 03/05/17 12:59 GSUN [id number]) Nutritional Asmnt/Malnutrition Patient General Information Nutritional Screening Consult Diagnosis Severe hypotension, hx respiratory distress with respiratory failure Pertinent Medical Hx/Surgical Hx Non-Hodgkin's lymphoma, inferior vena cava filter placement, DVTs, intracranial hemorrhage 3 years ago Subjective Information [address] consult for wounds. Pt undergoing intubation during visit. Observed ngtube in place for meds. Spoke to BRIE Duval RN stated 0% meal intake since adm prior to intubation. Current Diet Order/ Nutrition Support NPO Pertinent Medications MOM, Solu-Medrol Pertinent Labs Potassium 5.0 WNL, CO2 19.8L, BUN 79H, creatinine 2.5H, glucose 146H, phsophorus 6.6H, ammonia 71H Nutritional Hx/Data Height 1.8 m Height (Calculated Centimeters) 180.3 Current Weight (lbs) 102.058 kg Weight (Calculated Kilograms) 102.1 Weight (Calculated Grams) 284432.3 [place] Body Weight 172 Weight Status Obese GI Symptoms Food Allergies No Usual diet at home [place]: [place], [facility] soft Skin Integrity/Comment: [place] 14. Wound care 03/04: few moisture wounds and possible fungal infect Current %PO Negligible < 25% Estimated Nutritional Goals Calories/Kcals/Kg IBW 172lb/78.2kg (newly intubated, resp distress Kcals Calculated 1720-1955kcal (22-25kcal/kg, newly intubated, resp distress ) Protein Calculated 94-117g (1.2-1.5g/kg, renal, critical obese) Fluid: ml Per MD Nutritional Problem 1. Problem Problem Impaired nutrient utilization related to Etiology CKD stage III (03/04 MD note) aeb Signs/Symptoms: BUN 79H, creatinine 2.5H, phsophorus 6.6H Intervention/Recommendation Comments 1. Ng tube in place. If enteral nutrition suggested, recommend Novasource Renal at 40ml/hr x 24hrs, providing 960ml total volume, 1920kcal, 87g protein. Hypocaloric with consideration of obese, newly intubated. RD to monitor respiratory status and adjust rate during follow up. 2. If pt is extubated and able to resume oral diet, recommend mech soft renal diet . Recommend swallow eval as needed. Expected Outcomes/Goals Expected Outcomes/Goals 1. Pt to meet at least 60% of estimated nutritinoal needs in next 2 days.
--- NOTE | 2017-03-05 14:50 | General Progress Note ---
Subjective - Review of Systems Service Date: 03/05/17 Objective - Results Result Diagrams: 03/05/17 04:38 03/05/17 04:38 Recent Labs: Laboratory Last Values WBC 10.6 Th/cmm (4.8-10.8) 03/05/17 04:38 RBC 4.13 Mil/cmm (3.80-5.80) 03/05/17 04:38 Hgb 12.8 gm/dL (12-16) 03/05/17 04:38 Hct 38.5 % (41.0-60) L 03/05/17 04:38 MCV 93.1 fl (80-99) 03/05/17 04:38 MCH 31.1 pg (27.0-31.0) H 03/05/17 04:38 MCHC Differential 33.4 pg (28.0-36.0) 03/05/17 04:38 RDW 15.7 % (11.5-20.0) 03/05/17 04:38 Plt Count 76 Th/cmm (150-400) L 03/05/17 04:38 MPV 7.5 fl 03/05/17 04:38 Band Neutrophils % 2 % (0-10) 03/05/17 04:38 Neutrophils (Manual) 97 % (40-80) H 03/05/17 04:38 Lymphocytes 1 % (20-50) L 03/05/17 04:38 Monocytes 2 % (2-10) 03/03/17 21:04 Eosinophils 0 % (0-5) 03/03/17 21:04 Basophils 0 % (0-3) 03/03/17 21:04 Platelet Estimate DECREASED PLATELETS (NORMAL) 03/05/17 04:38 Platelet Morphology NORMAL (NORMAL) 03/03/17 21:04 RBC Morph Micro Appear NORMAL (NORMAL) 03/03/17 21:04 Eos Smear Source URINE 03/05/17 05:30 Eos Smear Total Cells NONE SEEN (NONE SEEN) 03/05/17 05:30 PT 10.2 SECONDS (9.5-11.5) 03/03/17 21:04 INR 0.98 (0.5-1.4) 03/03/17 21:04 PTT (Actin FS) 122.2 SECONDS (26.0-38.0) H* 03/05/17 07:50 D-Dimer 3820 ng/mL (100-400) H 03/03/17 21:04 Specimen Source Arterial 03/05/17 12:15 Sample Site Right Radial 03/05/17 12:15 pH 7.26 (7.35-7.45) L 03/05/17 12:15 pCO2 47.0 mmHg (35.0-45.0) H 03/05/17 12:15 pO2 80.0 mmHg (80.0-100.0) 03/05/17 12:15 HCO3 20.2 mEq/L (20.0-26.0) 03/05/17 12:15 Base Excess -6.0 mEq/L (-3.0-3.0) L 03/05/17 12:15 O2 Saturation 94.0 % (92.0-100.0) 03/05/17 12:15 Adan Test YES 03/05/17 12:15 Vent Rate 16 03/05/17 12:15 Inspired O2 100 03/05/17 12:15 Tidal Volume 500 03/05/17 12:15 PEEP 5 03/05/17 12:15 Pressure (ins/psv/peep) NA 03/05/17 12:15 Critical Value E.BRENNAN 03/05/17 12:15 Sodium 130 mEq/L (136-145) L 03/05/17 04:38 Potassium 5.0 mEq/L (3.5-5.1) 03/05/17 04:38 Chloride 97 mEq/L (98-107) L 03/05/17 04:38 Carbon Dioxide 19.8 mEq/L (21.0-31.0) L 03/05/17 04:38 Anion Gap 18.2 (7.0-16.0) H 03/05/17 04:38 BUN 79 mg/dL (7-25) H 03/05/17 04:38 Creatinine 2.5 mg/dL (0.7-1.3) H 03/05/17 04:38 Est GFR ( Amer) TNP 03/05/17 04:38 Est GFR (Non-Af Amer) TNP 03/05/17 04:38 BUN/Creatinine Ratio 31.6 03/05/17 04:38 Glucose 146 mg/dL (70-105) H 03/05/17 04:38 POC Glucose 74 MG/DL (70 - 105) 03/04/17 08:34 Whole Bld Lactic Acid 2.77 mmol/L (0.60-1.99) H* 03/05/17 06:40 Uric Acid 13.3 mg/dL (4.4-7.6) H 03/05/17 04:38 Calcium 8.8 mg/dL (8.6-10.3) 03/05/17 04:38 Phosphorus 6.6 mg/dL (2.5-5.0) H 03/05/17 04:38 Magnesium 2.4 mg/dL (1.9-2.7) 03/05/17 04:38 Total Bilirubin 0.9 mg/dL (0.3-1.0) 03/05/17 04:38 AST 18 U/L (13-39) 03/05/17 04:38 ALT 17 U/L (7-52) 03/05/17 04:38 Alkaline Phosphatase 31 U/L (34-104) L 03/05/17 04:38 Ammonia 71 umol/L (16-53) H 03/05/17 04:38 Creatine Kinase 24 U/L (30-223) L 03/03/17 21:04 Troponin I 0.02 ng/mL (0.01-0.05) 03/03/17 21:04 B-Natriuretic Peptide 95.9 pg/mL (5.0-100.0) 03/05/17 04:38 Total Protein 5.7 gm/dL (6.0-8.3) L 03/05/17 04:38 Albumin 3.7 gm/dL (4.2-5.5) L 03/05/17 04:38 Globulin 2.0 gm/dL 03/05/17 04:38 Albumin/Globulin Ratio 1.9 (1.0-1.8) H 03/05/17 04:38 Triglycerides 160 mg/dL (<150) H 03/03/17 21:04 Cholesterol 172 mg/dL (<200) 03/03/17 21:04 LDL Cholesterol Direct 70 mg/dL (75-193) L 03/03/17 21:04 HDL Cholesterol 76 mg/dL (23-92) 03/03/17 21:04 TSH 0.37 uIU/ml (0.34-5.60) 03/05/17 04:38 Urine Source MIDSTREAM 03/05/17 05:30 Urine Color YELLOW 03/05/17 05:30 Urine Clarity CLEAR (CLEAR) 03/05/17 05:30 Urine pH 5.0 (4.6 - 8.0) 03/05/17 05:30 Ur Specific [place]ver 1.020 (1.005-1.030) 03/05/17 05:30 Urine Protein NEGATIVE mg/dL (NEGATIVE) 03/05/17 05:30 Urine Glucose (UA) NEGATIVE mg/dL (NEGATIVE) 03/05/17 05:30 Urine Ketones NEGATIVE mg/dL (NEGATIVE) 03/05/17 05:30 Urine Blood NEGATIVE (NEGATIVE) 03/05/17 05:30 Urine Nitrate NEGATIVE (NEGATIVE) 03/05/17 05:30 Urine Bilirubin NEGATIVE (NEGATIVE) 03/05/17 05:30 Urine Urobilinogen 0.2 E.U./dL (0.2 - 1.0) 03/05/17 05:30 Ur Leukocyte Esterase NEGATIVE (NEGATIVE) 03/05/17 05:30 Urine RBC 0-2 /hpf (0-5) H 03/05/17 05:30 Urine WBC 0-2 /hpf (0-5) 03/05/17 05:30 Ur Epithelial Cells OCCASIONAL /lpf (FEW) 03/05/17 05:30 Urine Bacteria OCCASIONAL /hpf (NONE SEEN) 03/05/17 05:30 Fine Granular Casts 2-5 /lpf (NONE SEEN) H 03/05/17 05:30 Urine Mucus FEW /lpf (FEW) 03/05/17 05:30 Ur Random Sodium < 10 mmol/L 03/05/17 05:30 Urine Creatinine 109.2 mg/dl (39.0-259.0) 03/05/17 05:30 - Physical Exam Vitals and I&O: Vital Signs Temp 97.1 F 03/05/17 14:00 Pulse 85 03/05/17 14:00 Resp 24 03/05/17 14:00 BP 106/54 03/05/17 14:00 Pulse Ox 96 03/05/17 14:00 Intake & Output 03/04/17 03/05/17 03/05/17 18:59 06:59 18:59 Intake Total 120 376.365 300 Output Total 625 200 Balance -505 176.365 300 Weight (lbs) 101.423 kg 102.115 kg Intake: Intake, IV Amount 226.365 300 Cefepime 1 gm In Sodium 50 50 Chloride 0.9% 50 ml @ 100 mls/hr IV Q12HR [facility] Rx#: [id number] Heparin 25,000 Units In 250 D5W 25,000 units In 250 ml @ Titrate IV TITR PRN Rx#:[id number] Norepinephrine 4 mg In 126.365 Dextrose 5% 250 ml @ 8 MCG/MIN 30.48 mls/hr IV TITR PRN Rx#:[id number] cefTRIAXone 1 gm In 50 Sodium Chloride 0.9% 50 ml @ 100 mls/hr IV Q24HR [facility] Rx#:[id number] Oral 120 150 Output: Urine 625 200 Other: # Voids 1 # Bowel Movements 0 0 Active Medications: Current Medications Acetaminophen (Tylenol) 650 mg PO Q6HR PRN PRN Reason: Pain (Mild) Stop: 05/03/17 01:22 Acetaminophen (Tylenol) 650 mg PO Q6HR PRN PRN Reason: Fever > 101 Stop: 05/03/17 01:22 Acetaminophen/Hydrocodone Bitart (Elysian 5mg/325mg) 1 tab PO Q4HR PRN PRN Reason: Pain (Moderate) Stop: 05/03/17 01:22 Acetaminophen/Hydrocodone Bitart (Elysian 5mg/325mg) 2 tab PO Q4HR PRN PRN Reason: Severe Pain Stop: 05/03/17 01:22 Al Hydrox/Mg Hydrox/Simethicone (Maalox) 15 ml PO Q3HR PRN PRN Reason: Indigestion Stop: 05/03/17 01:22 Albuterol Sulfate (Albuterol 2.5mg/3ml Neb Ud) 2.5 mg HHN Q4H PRN PRN Reason: Shortness of Breath or Wheeze Stop: 05/03/17 01:56 Last Admin: 03/04/17 08:17 Dose: 2.5 mg Albuterol/Ipratropium (Duoneb Neb) 3 ml HHN Q4HRT [facility] Stop: 05/03/17 14:59 Last Admin: 03/05/17 12:55 Dose: 3 ml Alprazolam (Xanax) 0.5 mg PO BID [facility] PRN Reason: Protocol Stop: 05/03/17 21:14 Last Admin: 03/05/17 09:18 Dose: 0.5 mg Amiodarone HCl (Cordarone) 200 mg PO BID [facility] Stop: 05/03/17 08:59 Last Admin: 03/05/17 09:18 Dose: 200 mg Famotidine (Pepcid) 20 mg PO DAILY [facility] Stop: 05/03/17 08:59 Last Admin: 03/05/17 09:18 Dose: 20 mg Fluticasone Propionate (Flonase) 1 spr NS DAILY [facility] Stop: 05/03/17 08:59 Last Admin: 03/05/17 09:24 Dose: 1 spr Gabapentin (Neurontin) 100 mg PO DAILY [facility] Stop: 05/03/17 08:59 Last Admin: 03/05/17 09:18 Dose: 100 mg Gabapentin (Neurontin) 200 mg PO HS [facility] Stop: 05/03/17 20:59 Last Admin: 03/04/17 20:51 Dose: 200 mg Norepinephrine Bitartrate 4 mg (/ Dextrose) 254 mls @ 30.48 mls/hr IV TITR PRN ; Protocol; 8 MCG/MIN PRN Reason: BP MAINTENANCE (PER PROTOCOL) Stop: 05/03/17 09:32 Last Titration: 03/05/17 05:00 Dose: 0 mcg/min, 0 mls/hr Cefepime HCl 1 gm/ Sodium (Chloride) 50 mls @ 100 mls/hr IV Q12HR [facility] Stop: 05/03/17 20:59 Last Infusion: 03/05/17 10:20 Dose: Infused Heparin Sodium/Dextrose (Heparin Drip) 25,000 units in 250 mls @ 0 mls/hr IV TITR PRN; Protocol; Titrate PRN Reason: PROTOCOL Stop: 05/03/17 13:30 Last Admin: 03/05/17 12:00 Dose: 17 units/kg/hr, 17.242 mls/hr Lorazepam (Ativan) 2 mg IVP Q4HR PRN; Protocol PRN Reason: Agitation Stop: 05/04/17 11:53 Magnesium Hydroxide (Milk Of Magnesia) 30 ml PO HS PRN PRN Reason: Constipation Stop: 05/03/17 01:22 Methylprednisolone Sodium Succinate (Solu-Medrol) 80 mg IV Q6HR [facility] Stop: 05/03/17 17:59 Last Admin: 03/05/17 11:59 Dose: 80 mg Miscellaneous (Umeclidinium Brm/Vilanterol Tr [Anoro Ellipta 62.5-25 Mcg Inh]) 1 each IH DAILY [facility] Stop: 05/03/17 08:59 Miscellaneous (Pharmacy To Dose) 1 ea PRN [facility] Stop: 05/03/17 11:59 Miscellaneous (Probiotic Screen) 1 ea PRN PRN PRN Reason: PROTOCOL Stop: 05/04/17 13:57 Prednisone (Deltasone) 40 mg PO DAILY [facility] Stop: 05/03/17 08:59 Last Admin: 03/05/17 09:17 Dose: 40 mg Tamsulosin HCl (Flomax) 0.4 mg PO HS [facility] Stop: 05/03/17 20:59 Last Admin: 03/04/17 20:51 Dose: 0.4 mg Triamcinolone Acetonide (Kenalog 0.1%) 1 appl TP BID [facility] Stop: 05/03/17 08:59 Last Admin: 03/05/17 09:24 Dose: 1 appl Physical Exam: intubated, confused no bleeding abd soft General: No acute distress HEENT: Atraumatic, Mucous membr. 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, myc and bcl2 abnormality * DVT/PE * RESPIRATORY FAILURE * CHF * THROMBOCYTOPENIA SECONDARY TO CONSUMPTION IN THROMBOSIS VERY POOR PROGNOSIS CONTINUE HEPARIN START DECADRON HIGH DOSE Nutritional Asmnt/Malnutr-PDOC - Dietary Evaluation Malnutrition Findings (Please click <Entered> for more info): Nutritional Asmnt/Malnutrition Start: 03/05/17 12: 23 Text: Status: Complete Freq: Document 03/05/17 12:23 GSUN (Rec: 03/05/17 12:59 GSUN DENIFN) Nutritional Asmnt/Malnutrition Patient General Information Nutritional Screening Consult Diagnosis Severe hypotension, hx respiratory distress with respiratory failure Pertinent Medical Hx/Surgical Hx Non-Hodgkin's lymphoma, inferior vena cava filter placement, DVTs, intracranial hemorrhage 3 years ago Subjective Information [address] consult for wounds. Pt undergoing intubation during visit. Observed ngtube in place for meds. Spoke to RN BRIE Duval stated 0% meal intake since adm prior to intubation. Current Diet Order/ Nutrition Support NPO Pertinent Medications MOM, Solu-Medrol Pertinent Labs Potassium 5.0 WNL, CO2 19.8L, BUN 79H, creatinine 2.5H, glucose 146H, phsophorus 6.6H, ammonia 71H Nutritional Hx/Data Height 1.8 m Height (Calculated Centimeters) 180.3 Current Weight (lbs) 102.058 kg Weight (Calculated Kilograms) 102.1 Weight (Calculated Grams) 068927.3 Griffin Body Weight 172 Weight Status Obese GI Symptoms Food Allergies No Usual diet at home [place] [place] Skin Integrity/Comment: [place] 14. Wound care 03/04: few moisture wounds and possible fungal infect Current %PO Negligible < 25% Estimated Nutritional Goals Calories/Kcals/Kg IBW 172lb/78.2kg (newly intubated, resp distress Kcals Calculated 1720-1955kcal (22-25kcal/kg, newly intubated, resp distress ) Protein Calculated 94-117g (1.2-1.5g/kg, renal, critical obese) Fluid: ml Per MD Nutritional Problem 1. Problem Problem Impaired nutrient utilization related to Etiology CKD stage III (03/04 MD note) aeb Signs/Symptoms: BUN 79H, creatinine 2.5H, phsophorus 6.6H Intervention/Recommendation Comments 1. Ng tube in place. If enteral nutrition suggested, recommend Novasource Renal at 40ml/hr x 24hrs, providing 960ml total volume, 1920kcal, 87g protein. Hypocaloric with consideration of obese, newly intubated. RD to monitor respiratory status and adjust rate during follow up. 2. If pt is extubated and able to resume oral diet, recommend [facility] soft renal diet . Recommend swallow eval as needed. Expected Outcomes/Goals Expected Outcomes/Goals 1. Pt to meet at least 60% of estimated nutritinoal needs in next 2 days.
[2017-03-05] MEDS ORDERED: Dexamethasone Sodium Phos 4 mg/mL Vial IVP SCH (15:00)
--- NOTE | 2017-03-05 15:55 | Consultation ---
DATE OF CONSULTATION: 03/04/2017 REFERRING PHYSICIAN: William Williamson M.D. Thank you very much for this consultation. HISTORY OF PRESENT ILLNESS: This is a 76-year-old male who was discharged recently from [facility] after being treated for possible recurrence of non-Hodgkin lymphoma. The patient was treated a year ago. The patient did have mediastinoscopy and lymph node biopsy. Postoperatively, respiratory failure is improved and apparently was discharged. The patient presented back with respiratory distress, shortness of breath, hypoxemia and now he is on BiPAP 100%, appears to be doing better, getting some Lasix, antibiotics, nebulized treatment as well. The patient has a history of DVT and history of intracranial hemorrhage secondary to anticoagulation because of DVT, therefore he did have an IVC filter placed about a year ago or so. PAST MEDICAL HISTORY: His other past medical history of smoking, quit 10 years ago. SOCIAL HISTORY: Other social history, denies drinking or drug use. PHYSICAL EXAMINATION: GENERAL: Awake, alert, in some distress because of shortness of breath. VITAL SIGNS: Temperature is 97.1, pulse is 61, respirations 15, blood pressure is 131/71, saturation 99%. HEENT: Atraumatic, normocephalic. Pupils equal and reactive to light and accommodation. Ears, nose, and throat normal. NECK: Supple. No JVD. CHEST: There are decreased breath sounds, rales, and rhonchi bilaterally. HEART: Regular rate and rhythm. ABDOMEN: Soft. EXTREMITIES: 1+ edema with venous stasis changes. LABORATORY DATA: WBC is 5.3, hemoglobin 12.6, hematocrit 38.3, platelets are 73. ABGs: pH 7.36, pCO2 of 39, pO2 of 99, bicarbonate 22, saturation 97%. D-dimer is 3820. Venous Doppler of both lower extremities positive for DVT. The sodium 129, potassium 4.6, BUN 70, creatinine 2.2. Lactic acid 4.02, the BNP is 156. Chest x-ray, bibasilar infiltrate and effusion and large mediastinum. IMPRESSION: 1. This is a 76-year-old male with respiratory failure, possibly multifactorial, including pneumonia. The lymphoma itself probably affecting the airways and consists of possible PE, with the patient has IVC filter with larger PE. 2. Chronic obstructive pulmonary disease. PLAN: 1. We will continue antibiotics. 2. We will add Solu-Medrol. 3. We will do a CT angiogram of lung prior to anticoagulating since the high risk of bleeding with previous bleed in the past. Most likely it is the recurrence of the lymphoma causing many of these stuffs and its complication. Overall prognosis is poor. Thank you very much. I will follow the patient with you. JOB# [id number] [facility]
[2017-03-05] MEDS: Dexamethasone Sodium Phos 40 MG in Sodium Chloride 0.9% 50 ML IV SCH (16:00)
--- NOTE | 2017-03-05 16:54 | Consultation ---
DATE OF CONSULTATION: 03/04/2017 UTILITY ASSEMBLER: Charly Kennedy MD. REASON FOR CONSULT: Worsening kidney function and electrolyte imbalance. HISTORY OF PRESENT ILLNESS: This is a 76-year-old male with past medical history of chronic kidney disease, who came in because of respiratory distress. One day prior to admission, the patient developed cough and congestion. This was associated with fever. He was then brought to the Emergency Room. Chest x-ray revealed bilateral effusions and air space disease, thickened upper mediastinal border suggestive of lymphadenopathy or mass lesions. V/Q scan of the lower extremities, revealed intermediate probability, but bilateral lower extremity Duplex scan confirmed presence of bilateral DVT. CT of the head showed no acute abnormality. The patient also has history of chronic kidney disease. He was admitted with the BUN/creatinine of 70/2.2 and sodium of 129. He denied any nausea and vomiting as well as diarrhea, but he has poor oral intake. PAST MEDICAL HISTORY: 1. Non-Hodgkin's lymphoma, in mediastinal area, stage 2A, diffuse enlarged B-cell, status post RCHOP. 2. Left pleural effusion, status post thoracentesis. 3. Acute kidney injury, on chronic kidney disease. 4. Paroxysmal atrial fibrillation. 5. Phimotic foreskin with buried penis. 6. Acute respiratory failure, on chronic obstructive pulmonary disease. 7. Benign prostatic hypertrophy with history of obstructive uropathy. 8. History of right lower extremity deep vein thrombosis. 9. History of intracranial hemorrhage secondary to Coumadin. PAST SURGICAL HISTORY: 1. Status post mediastinoscopy with biopsy. 2. Status post placement of IVC filter. CURRENT MEDICATIONS: He is currently on acetaminophen, albuterol, ipratropium, amiodarone, cefepime, ceftriaxone, famotidine, fluticasone, gabapentin, norepinephrine, magnesium hydroxide, methylprednisolone, tamsulosin, and prednisone. ALLERGIES: ALLERGIC TO LEVOFLOXACIN, SULFAMETHAXOZOLE, TRIMETHOPRIM WELL WARFARIN. SOCIAL HISTORY: The patient quit smoking as well as alcohol intake. He used to work for [employer]. FAMILY HISTORY: This is noncontributory to present illness. REVIEW OF SYSTEMS: Unable to obtain because the patient is currently on BiPAP. PHYSICAL EXAMINATION: GENERAL: The patient is awake, nods head as form of communication, on BiPAP. VITAL SIGNS: He is afebrile, blood pressure now is 115/55, pulse is 79. SKIN: Poor turgor, warm. No rash, no jaundice appreciated. HEENT: Head normocephalic, atraumatic. Eyes: Extraocular muscles intact. Pupils are equal, round, reactive to light and accommodates. Anicteric sclerae. Pale conjunctivae. Nose, midline nasal septum. Mouth: Dry mucosa with adequate dentition. NECK: Supple. He has bilateral adenopathy located on the anterior cervical care. Trachea palpated in the midline. CHEST/CARDIOVASCULAR: Disturbed heart sounds due to size, S1, S2. No rub, murmur, nor gallop appreciated. Point of maximal impulse unable to assess due to patient's size. He does have healed scar at the base of his neck. He also has spider angiomas on the superior portion of his chest. LUNGS: Equal expansion, [id number] to use of accessory muscles, scattered rhonchi with some congestion and rales on auscultation, but no wheeze appreciated. ABDOMEN: Obese, soft, positive for bowel sounds. No bruits either diastolic or systolic. RECTAL: Unable to perform due to the patient's size and current position. GENITOURINARY: Normal. He has phimosis with buried penis. EXTREMITIES: He has I would say +2 bipedal pitting edema with palpable femoral, but unable to fully appreciate popliteal and dorsalis pedis pulses. NEUROLOGIC: The patient is awake, but currently on BiPAP and unable to follow my neuro commands. I was not able to pursue further my neuro exam. LABORATORY DATA: Did reveal white count of 9.3, hemoglobin 12.6, hematocrit 38.3, platelets 73, and polys 89%. Sodium 129, potassium 4.6, chloride 97, CO2 19.8, BUN 70, creatinine 2.2, glucose 150, lactic acid is 4, and calcium 9.1. BNP 156, albumin is 3.8. IMPRESSION: 1. Acute kidney injury on chronic kidney disease, MDRD GFR of 31.6 mL per minute, stage 3. The patient's chronic kidney disease is possibly secondary to obstructive uropathy with history of benign prostatic hypertrophy and urinary retention in the past. Acute kidney injury, is initially prerenal in nature. The patient had very poor appetite, he was on diuretics on and off. His prerenal azotemia eventually progressed to acute tubular injury. He also has ongoing sepsis with elevated white count and with elevated lactic acid along with fever. He could have developed acute interstitial nephritis due to ongoing septicemia. However, we also need to consider acute obstructive uropathy with history of recurring urinary retention. 2. Hyponatremia, likely dilutional in nature based on physical exam. The patient has ongoing bilateral effusions along with peripheral edema. 3. Lgnur-[id number] respiratory failure (chronic obstructive pulmonary disease) on BiPAP secondary to decompensated congestive heart failure without any exacerbation of his chronic obstructive pulmonary disease. 4. Non-Hodgkin's lymphoma in mediastinal area, status post mediastinoscopy, with biopsy. 5. Left pleural effusion status post thoracentesis. 6. Paroxysmal atrial fibrillation. 7. Phimotic foreskin with buried penis. 8. Benign prostatic hypertrophy with history of obstructive uropathy. 9. History of right lower extremity deep vein thrombosis, status post IVC filter. 10. History of intracranial hemorrhage secondary to Coumadin. PLAN: 1. Urinalysis. 2. Urine spot sodium, eosinophils, and creatinine. 3. Renal ultrasound and monitor bladder for any retention. 4. Urine microalbumin to creatinine ratio. 5. Lasix as needed. 6. Followup electrolytes, uric acid, and PSA. JOB# [id number]
[2017-03-05] MEDS: Betamethasone/Clotrimazole Cream 15 gm Tube TP SCH (17:34)
[2017-03-05] MEDS ORDERED: Sodium Chloride 0.45% 1,000 ML IV SCH (21:00)
[2017-03-05] MEDS: Sodium Chloride 0.9% 1,500 ML IV SCH (21:06)
[2017-03-05] MEDS: Lactulose 10 Gm/15 mL 30mL UDC PO SCH (21:14)
--- NOTE | 2017-03-05 21:28 | Cardiology ---
03/04/[address] Williamson. M-MODE ECHOCARDIOGRAM: Technically poor 2D echo only structure visualized in apical 4 chamber view, which showed normal sized left ventricle with hypertrophy of the left ventricle. Left atrium normal. Right ventricular cavity, right atrium normal, no pericardial effusion. CONCLUSION: Hypertrophy of the left ventricle, ejection fraction 55%. Doppler study, prominent A wave consistent with poor compliance of left ventricle, technically poor echo. [facility]# [id number]
--- NOTE | 2017-03-05 22:13 | General Progress Note ---
Subjective - Review of Systems Service Date: 03/05/17 Subjective: intubated nad Objective - Results Result Diagrams: 03/05/17 04:38 03/05/17 04:38 Recent Labs: Laboratory Last Values WBC 10.6 Th/cmm (4.8-10.8) 03/05/17 04:38 RBC 4.13 Mil/cmm (3.80-5.80) 03/05/17 04:38 Hgb 12.8 gm/dL (12-16) 03/05/17 04:38 Hct 38.5 % (41.0-60) L 03/05/17 04:38 MCV 93.1 fl (80-99) 03/05/17 04:38 MCH 31.1 pg (27.0-31.0) H 03/05/17 04:38 MCHC Differential 33.4 pg (28.0-36.0) 03/05/17 04:38 RDW 15.7 % (11.5-20.0) 03/05/17 04:38 Plt Count 76 Th/cmm (150-400) L 03/05/17 04:38 MPV 7.5 fl 03/05/17 04:38 Band Neutrophils % 2 % (0-10) 03/05/17 04:38 Neutrophils (Manual) 97 % (40-80) H 03/05/17 04:38 Lymphocytes 1 % (20-50) L 03/05/17 04:38 Monocytes 2 % (2-10) 03/03/17 21:04 Eosinophils 0 % (0-5) 03/03/17 21:04 Basophils 0 % (0-3) 03/03/17 21:04 Platelet Estimate DECREASED PLATELETS (NORMAL) 03/05/17 04:38 Platelet Morphology NORMAL (NORMAL) 03/03/17 21:04 RBC Morph Micro Appear NORMAL (NORMAL) 03/03/17 21:04 Eos Smear Source URINE 03/05/17 05:30 Eos Smear Total Cells NONE SEEN (NONE SEEN) 03/05/17 05:30 PT 10.2 SECONDS (9.5-11.5) 03/03/17 21:04 INR 0.98 (0.5-1.4) 03/03/17 21:04 PTT (Actin FS) 101.8 SECONDS (26.0-38.0) H* 03/05/17 16:13 D-Dimer 3820 ng/mL (100-400) H 03/03/17 21:04 Specimen Source Arterial 03/05/17 12:15 Sample Site Right Radial 03/05/17 12:15 pH 7.26 (7.35-7.45) L 03/05/17 12:15 pCO2 47.0 mmHg (35.0-45.0) H 03/05/17 12:15 pO2 80.0 mmHg (80.0-100.0) 03/05/17 12:15 HCO3 20.2 mEq/L (20.0-26.0) 03/05/17 12:15 Base Excess -6.0 mEq/L (-3.0-3.0) L 03/05/17 12:15 O2 Saturation 94.0 % (92.0-100.0) 03/05/17 12:15 Adan Test YES 03/05/17 12:15 Vent Rate 16 03/05/17 12:15 Inspired O2 100 03/05/17 12:15 Tidal Volume 500 03/05/17 12:15 PEEP 5 03/05/17 12:15 Pressure (ins/psv/peep) NA 03/05/17 12:15 Critical Value E.BRENNAN 03/05/17 12:15 Sodium 130 mEq/L (136-145) L 03/05/17 04:38 Potassium 5.0 mEq/L (3.5-5.1) 03/05/17 04:38 Chloride 97 mEq/L (98-107) L 03/05/17 04:38 Carbon Dioxide 19.8 mEq/L (21.0-31.0) L 03/05/17 04:38 Anion Gap 18.2 (7.0-16.0) H 03/05/17 04:38 BUN 79 mg/dL (7-25) H 03/05/17 04:38 Creatinine 2.5 mg/dL (0.7-1.3) H 03/05/17 04:38 Est GFR ( Amer) TNP 03/05/17 04:38 Est GFR (Non-Af Amer) TNP 03/05/17 04:38 BUN/Creatinine Ratio 31.6 03/05/17 04:38 Glucose 146 mg/dL (70-105) H 03/05/17 04:38 POC Glucose 154 MG/DL (70 - 105) H 03/05/17 20:21 Whole Bld Lactic Acid 2.77 mmol/L (0.60-1.99) H* 03/05/17 06:40 Uric Acid 13.3 mg/dL (4.4-7.6) H 03/05/17 04:38 Calcium 8.8 mg/dL (8.6-10.3) 03/05/17 04:38 Phosphorus 6.6 mg/dL (2.5-5.0) H 03/05/17 04:38 Magnesium 2.4 mg/dL (1.9-2.7) 03/05/17 04:38 Total Bilirubin 0.9 mg/dL (0.3-1.0) 03/05/17 04:38 AST 18 U/L (13-39) 03/05/17 04:38 ALT 17 U/L (7-52) 03/05/17 04:38 Alkaline Phosphatase 31 U/L (34-104) L 03/05/17 04:38 Ammonia 71 umol/L (16-53) H 03/05/17 04:38 Creatine Kinase 24 U/L (30-223) L 03/03/17 21:04 Troponin I 0.02 ng/mL (0.01-0.05) 03/03/17 21:04 B-Natriuretic Peptide 95.9 pg/mL (5.0-100.0) 03/05/17 04:38 Total Protein 5.7 gm/dL (6.0-8.3) L 03/05/17 04:38 Albumin 3.7 gm/dL (4.2-5.5) L 03/05/17 04:38 Globulin 2.0 gm/dL 03/05/17 04:38 Albumin/Globulin Ratio 1.9 (1.0-1.8) H 03/05/17 04:38 Triglycerides 160 mg/dL (<150) H 03/03/17 21:04 Cholesterol 172 mg/dL (<200) 03/03/17 21:04 LDL Cholesterol Direct 70 mg/dL (75-193) L 03/03/17 21:04 HDL Cholesterol 76 mg/dL (23-92) 03/03/17 21:04 TSH 0.37 uIU/ml (0.34-5.60) 03/05/17 04:38 Urine Source MIDSTREAM 03/05/17 05:30 Urine Color YELLOW 03/05/17 05:30 Urine Clarity CLEAR (CLEAR) 03/05/17 05:30 Urine pH 5.0 (4.6 - 8.0) 03/05/17 05:30 Ur Specific [place] 1.020 (1.005-1.030) 03/05/17 05:30 Urine Protein NEGATIVE mg/dL (NEGATIVE) 03/05/17 05:30 Urine Glucose (UA) NEGATIVE mg/dL (NEGATIVE) 03/05/17 05:30 Urine Ketones NEGATIVE mg/dL (NEGATIVE) 03/05/17 05:30 Urine Blood NEGATIVE (NEGATIVE) 03/05/17 05:30 Urine Nitrate NEGATIVE (NEGATIVE) 03/05/17 05:30 Urine Bilirubin NEGATIVE (NEGATIVE) 03/05/17 05:30 Urine Urobilinogen 0.2 E.U./dL (0.2 - 1.0) 03/05/17 05:30 Ur Leukocyte Esterase NEGATIVE (NEGATIVE) 03/05/17 05:30 Urine RBC 0-2 /hpf (0-5) H 03/05/17 05:30 Urine WBC 0-2 /hpf (0-5) 03/05/17 05:30 Ur Epithelial Cells OCCASIONAL /lpf (FEW) 03/05/17 05:30 Urine Bacteria OCCASIONAL /hpf (NONE SEEN) 03/05/17 05:30 Fine Granular Casts 2-5 /lpf (NONE SEEN) H 03/05/17 05:30 Urine Mucus FEW /lpf (FEW) 03/05/17 05:30 Ur Random Sodium < 10 mmol/L 03/05/17 05:30 Urine Creatinine 109.2 mg/dl (39.0-259.0) 03/05/17 05:30 - Physical Exam Vitals and I&O: Vital Signs Temp 98.4 F 03/05/17 19:00 Pulse 83 03/05/17 21:00 Resp 23 03/05/17 19:00 BP 120/65 03/05/17 19:00 Pulse Ox 95 03/05/17 21:00 Intake & Output 03/05/17 03/05/17 03/06/17 06:59 18:59 06:59 Intake Total 376.365 633.11 Output Total 200 Balance 176.365 633.11 Weight (lbs) 102.115 kg 102.228 kg Intake: Intake, IV Amount 226.365 433.11 Cefepime 1 gm In Sodium 50 50 Chloride 0.9% 50 ml @ 100 mls/hr IV Q12HR [facility] Rx#: [id number] Dexamethasone Sodium Phos 54 40 mg In Sodium Chloride 0.9% 50 ml @ 100 mls/hr IV Q24H [facility] Rx#:[id number] Heparin 25,000 Units In 329.11 D5W 25,000 units In 250 ml @ Titrate IV TITR PRN Rx#:[id number] Norepinephrine 4 mg In 126.365 Dextrose 5% 250 ml @ 8 MCG/MIN 30.48 mls/hr IV TITR PRN Rx#:[id number] cefTRIAXone 1 gm In 50 Sodium Chloride 0.9% 50 ml @ 100 mls/hr IV Q24HR [facility] Rx#:[id number] Oral 150 100 Other 100 Output: Urine 200 Other: # Voids 1 2 # Bowel Movements 0 0 Active Medications: Current Medications Acetaminophen (Tylenol) 650 mg PO Q6HR PRN PRN Reason: Pain (Mild) Stop: 05/03/17 01:22 Acetaminophen (Tylenol) 650 mg PO Q6HR PRN PRN Reason: Fever > 101 Stop: 05/03/17 01:22 Acetaminophen/Hydrocodone Bitart ([place] 5mg/325mg) 1 tab PO Q4HR PRN PRN Reason: Pain (Moderate) Stop: 05/03/17 01:22 Acetaminophen/Hydrocodone Bitart ([place] 5mg/325mg) 2 tab PO Q4HR PRN PRN Reason: Severe Pain Stop: 05/03/17 01:22 Al Hydrox/Mg Hydrox/Simethicone (Maalox) 15 ml PO Q3HR PRN PRN Reason: Indigestion Stop: 05/03/17 01:22 Albuterol Sulfate (Albuterol 2.5mg/3ml Neb Ud) 2.5 mg HHN Q4H PRN PRN Reason: Shortness of Breath or Wheeze Stop: 05/03/17 01:56 Last Admin: 03/04/17 08:17 Dose: 2.5 mg Albuterol/Ipratropium (Duoneb Neb) 3 ml HHN Q4HRT [facility] Stop: 05/03/17 14:59 Last Admin: 03/05/17 19:05 Dose: 3 ml Alprazolam (Xanax) 0.5 mg PO BID CRISTIANE PRN Reason: Protocol Stop: 05/03/17 21:14 Last Admin: 03/05/17 17:28 Dose: 0.5 mg Amiodarone HCl (Cordarone) 200 mg PO BID CRISTIANE Stop: 05/03/17 08:59 Last Admin: 03/05/17 17:34 Dose: Not Given Betamethasone/Clotrimazole (Lotrisone Cream) 1 appl TP BID CRISTIANE Stop: 05/04/17 16:59 Last Admin: 03/05/17 17:34 Dose: 1 appl Famotidine (Pepcid) 20 mg PO DAILY [facility] Stop: 05/03/17 08:59 Last Admin: 03/05/17 09:18 Dose: 20 mg Fluticasone Propionate (Flonase) 1 spr NS DAILY CRISTIANE Stop: 05/03/17 08:59 Last Admin: 03/05/17 09:24 Dose: 1 spr Gabapentin (Neurontin) 100 mg PO DAILY CRISTIANE Stop: 05/03/17 08:59 Last Admin: 03/05/17 09:18 Dose: 100 mg Gabapentin (Neurontin) 200 mg PO HS [facility] Stop: 05/03/17 20:59 Last Admin: 03/05/17 21:13 Dose: 200 mg Norepinephrine Bitartrate 4 mg (/ Dextrose) 254 mls @ 30.48 mls/hr IV TITR PRN ; Protocol; 8 MCG/MIN PRN Reason: BP MAINTENANCE (PER PROTOCOL) Stop: 05/03/17 09:32 Last Titration: 03/05/17 05:00 Dose: 0 mcg/min, 0 mls/hr Cefepime HCl 1 gm/ Sodium (Chloride) 50 mls @ 100 mls/hr IV Q12HR [facility] Stop: 05/03/17 20:59 Last Admin: 03/05/17 21:11 Dose: 100 mls/hr Heparin Sodium/Dextrose (Heparin Drip) 25,000 units in 250 mls @ 0 mls/hr IV TITR PRN; Protocol; Titrate PRN Reason: PROTOCOL Stop: 05/03/17 13:30 Last Titration: 03/05/17 18:00 Dose: 11 units/kg/hr, 11.157 mls/hr Dexamethasone Sodium Phosphate (40 mg/ Sodium Chloride) 54 mls @ 100 mls/hr IV Q24H CRISTIANE Stop: 03/09/17 16:33 Last Infusion: 03/05/17 16:35 Dose: Infused Sodium Chloride (Nacl 0.9%) 1,500 mls @ 500 mls/hr IV .Q3H CRISTIANE Stop: 03/06/17 00:00 Last Admin: 03/05/17 21:06 Dose: 500 mls/hr Lactulose (Cephulac) 30 gm PO Q6H CRISTIANE Stop: 05/04/17 20:59 Last Admin: 03/05/17 21:14 Dose: 30 gm Lorazepam (Ativan) 2 mg IVP Q4HR PRN; Protocol PRN Reason: Agitation Stop: 05/04/17 11:53 Last Admin: 03/05/17 13:35 Dose: 2 mg Magnesium Hydroxide (Milk Of Magnesia) 30 ml PO HS PRN PRN Reason: Constipation Stop: 05/03/17 01:22 Miscellaneous (Umeclidinium Brm/Vilanterol Tr [Anoro Ellipta 62.5-25 Mcg Inh]) 1 each IH DAILY CRISTIANE Stop: 05/03/17 08:59 Miscellaneous (Pharmacy To Dose) 1 ea PRN CRISTIANE Stop: 05/03/17 11:59 Miscellaneous (Probiotic Screen) 1 ea PRN PRN PRN Reason: PROTOCOL Stop: 05/04/17 13:57 Tamsulosin HCl (Flomax) 0.4 mg PO HS CRISTIANE Stop: 05/03/17 20:59 Last Admin: 03/05/17 21:13 Dose: 0.4 mg Triamcinolone Acetonide (Kenalog 0.1%) 1 appl TP BID CRISTIANE Stop: 05/03/17 08:59 Last Admin: 03/05/17 17:34 Dose: 1 appl General: No acute distress HEENT: Atraumatic, Mucous membr. moist/pink Neck: Supple, +2 carotid pulse wo bruit Cardiovascular: Regular rate, Normal S1, Normal S2 Lungs: Other (few rhonchi) Abdomen: Bowel sounds, Soft Extremities: Edema (mild) Neurological: Sensation intact Skin: no Rash Psych/Mental Status: Mood NL - Procedures Procedures: Procedures Procedure Code Date ASSISTANCE WITH RESPIRATORY VENTILATION, 24-96 HRS, CPAP [id number] 03/03/17 POS AIRWAY PRESSURE CPAP 66677 03/03/17 Assessment/Plan - Assessment Assessment: severe hypotension hx lymphoma venous thrombosis hx resp distress with resp failure - Plan Plan: closely monitor in icu respiratory support cpm Nutritional Asmnt/Malnutr-PDOC - Dietary Evaluation Malnutrition Findings (Please click <Entered> for more info): Nutritional Asmnt/Malnutrition Start: 03/05/17 12: 23 Text: Status: Complete Freq: Document 03/05/17 12:23 GSUN (Rec: 03/05/17 12:59 GSUN [id number]) Nutritional Asmnt/Malnutrition Patient General Information Nutritional Screening Consult Diagnosis Severe hypotension, hx respiratory distress with respiratory failure Pertinent Medical Hx/Surgical Hx Non-Hodgkin's lymphoma, inferior vena cava filter placement, DVTs, intracranial hemorrhage 3 years ago Subjective Information [address] consult for wounds. Pt undergoing intubation during visit. Observed ngtube in place for meds. Spoke to BRIE Duval RN stated 0% meal intake since adm prior to intubation. Current Diet Order/ Nutrition Support NPO Pertinent Medications MOM, Solu-Medrol Pertinent Labs Potassium 5.0 WNL, CO2 19.8L, BUN 79H, creatinine 2.5H, glucose 146H, phsophorus 6.6H, ammonia 71H Nutritional Hx/Data Height 1.8 m Height (Calculated Centimeters) 180.3 Current Weight (lbs) 102.058 kg Weight (Calculated Kilograms) 102.1 Weight (Calculated Grams) 207425.3 [place] Body Weight 172 Weight Status Obese GI Symptoms Food Allergies No Usual diet at home [place]: [place], [facility] soft Skin Integrity/Comment: [place]. Wound care 03/04: few moisture wounds and possible fungal infect Current %PO Negligible < 25% Estimated Nutritional Goals Calories/Kcals/Kg IBW 172lb/78.2kg (newly intubated, resp distress Kcals Calculated 1720-1955kcal (22-25kcal/kg, newly intubated, resp distress ) Protein Calculated 94-117g (1.2-1.5g/kg, renal, critical obese) Fluid: ml Per MD Nutritional Problem 1. Problem Problem Impaired nutrient utilization related to Etiology CKD stage III (03/04 MD note) aeb Signs/Symptoms: BUN 79H, creatinine 2.5H, phsophorus 6.6H Intervention/Recommendation Comments 1. Ng tube in place. If enteral nutrition suggested, recommend Novasource Renal at 40ml/hr x 24hrs, providing 960ml total volume, 1920kcal, 87g protein. Hypocaloric with consideration of obese, newly intubated. RD to monitor respiratory status and adjust rate during follow up. 2. If pt is extubated and able to resume oral diet, recommend mech soft renal diet . Recommend swallow eval as needed. Expected Outcomes/Goals Expected Outcomes/Goals 1. Pt to meet at least 60% of estimated nutritinoal needs in next 2 days.
[2017-03-06] MEDS: Sodium Chloride 0.9% 1,500 ML IV SCH (02:58)
[2017-03-06] MEDS: Albuterol/Ipratropium Neb 3 ML AERS HHN SCH ×5 (03:00→18:34)
[2017-03-06] MEDS: Lactulose 10 Gm/15 mL 30mL UDC PO SCH ×4 (03:05→21:27)
[2017-03-06 05:08] LABS: RED CELL DISTRIBUTION WIDTH 15.8 % (11.5-20.0)
[2017-03-06 05:13] LABS: HEMATOCRIT 36.2 % (41.0-60); MEAN CELL VOLUME 94.3 fl (80-99); MEAN CORPUSCULAR HEMOGLOBIN 31.3 pg (27.0-31.0); MEAN CORPUSCULAR HGB CONC 33.2 pg (28.0-36.0); MEAN PLATELET VOLUME 7.9 fl; PLATELET COUNT 74 Th/cmm (150-400); RED BLOOD COUNT 3.84 Mil/cmm (3.80-5.80); WHITE BLOOD COUNT 11.4 Th/cmm (4.8-10.8)
[2017-03-06 05:35] LABS: ANION GAP 17.7 (7.0-16.0); CALCIUM SERUM 8.4 mg/dL (8.6-10.3); CARBON DIOXIDE 19.3 mEq/L (21.0-31.0); CHLORIDE 103 mEq/L (98-107); CREATININE - SERUM 3.1 mg/dL (0.7-1.3); GLUCOSE 229 mg/dL (70-105); SODIUM SERUM 135 mEq/L (136-145)
[2017-03-06 06:10] LABS: BUN - UREA NITROGEN 93 mg/dL (7-25)
[2017-03-06] MEDS ORDERED: Norepinephrine 4 mg/4mL Vial IV ONE (06:57)
[2017-03-06] MEDS ORDERED: Sodium Chloride 0.9% 1,000 ML IV SCH (07:14)
[2017-03-06 07:26] LABS: NEUTROPHILS 89 % (40-80); TOTAL CELLS COUNTED 100
[2017-03-06 07:27] LABS: BAND NEUTROPHILE 6 % (0-10); PLATELET ESTIMATE DECREASED PLATELETS (NORMAL); PLATELET MORPHOLOGY NORMAL (NORMAL)
--- NOTE | 2017-03-06 08:59 | Diagnostic Imaging Report ---
Portable chest x-ray HISTORY: Shortness of breath Compared to prior exam of March 05, 2017. Persistent yet slightly decreased left pleural effusion. Evidence of a small right pleural effusion. The heart remains enlarged. There remains a degree of pulmonary vascular redistribution consistent with cardiac decompensation. An endotracheal tube tip is approximately 3.0 cm above the debra. IMPRESSION: 1. Persistent yet slightly decreased left pleural effusion. Persistent cardiomegaly and changes suggesting congestive heart failure. Underlying pneumonia cannot be excluded. Clinical correlation is needed.
[2017-03-06] MEDS: Cefepime 1 GM in Sodium Chloride 0.9% 50 ML IV SCH ×2 (09:00→21:23)
--- NOTE | 2017-03-06 09:02 | Diagnostic Imaging Report ---
Renal ultrasound HISTORY: Abnormal renal function tests The right kidney is normal in size (10.1 x 5.5 x 6.1 cm). A 2.8 cm well-circumscribed sonolucent lesion extends off the upper cortex consistent with a cyst. No hydronephrosis. The left kidney is normal in size (10.6 x 6.0 x 6.4 cm). A 3.0 cm sonolucent lesion is noted in the upper pole consistent with a cyst. No hydronephrosis. No intraluminal abnormality seen within the urinary bladder. There appears to be enlargement of the prostate gland with encroachment on the floor of the urinary bladder. Post void urine residual could not be evaluated due to lack of patient cooperation. IMPRESSION: 1. Bilateral renal cysts 2. No hydronephrosis 3. Evidence of prostate enlargement. Evaluation of post void urine residual could not be performed due to lack of patient cooperation.
[2017-03-06 09:15] LABS: ABG SOURCE Arterial; ALLEN TEST PASS; BE(B) -7.5 mEq/L (-3.0-3.0); FIO2 60; HCO3 18.8 mEq/L (20.0-26.0); MECH RATE 22; MECH VT 500; pH 7.28 (7.35-7.45)
[2017-03-06 09:20] LABS: CRITICAL VALUES REPORTED BY PW
[2017-03-06] MEDS: Triamcinolone Acetonide 0.1% Cream 15 gm TP SCH ×2 (09:56→17:45)
[2017-03-06] MEDS: Fluticasone Propionate 0.05mg/Actuation 16gm Nasal Spray NS SCH (09:56)
[2017-03-06] MEDS: Betamethasone/Clotrimazole Cream 15 gm Tube TP SCH ×2 (09:56→17:40)
[2017-03-06] MEDS: Chlorhexidine Gluconate 0.12% 15mL Mouthwash MM SCH ×2 (09:58→20:24)
[2017-03-06] MEDS: Hydrocodone/APAP 5mg/325mg Tab PO PRN ×2 (10:15→16:39)
--- NOTE | 2017-03-06 13:35 | General Progress Note ---
Subjective - Review of Systems Service Date: 03/06/17 Subjective: stuporous, on vent Objective - Results Result Diagrams: 03/06/17 04:53 03/06/17 04:53 Recent Labs: Laboratory Last Values WBC 11.4 Th/cmm (4.8-10.8) H 03/06/17 04:53 RBC 3.84 Mil/cmm (3.80-5.80) 03/06/17 04:53 Hgb 12.0 gm/dL (12-16) 03/06/17 04:53 Hct 36.2 % (41.0-60) L 03/06/17 04:53 MCV 94.3 fl (80-99) 03/06/17 04:53 MCH 31.3 pg (27.0-31.0) H 03/06/17 04:53 MCHC Differential 33.2 pg (28.0-36.0) 03/06/17 04:53 RDW 15.8 % (11.5-20.0) 03/06/17 04:53 Plt Count 74 Th/cmm (150-400) L 03/06/17 04:53 MPV 7.9 fl 03/06/17 04:53 Band Neutrophils % 6 % (0-10) 03/06/17 04:53 Neutrophils (Manual) 89 % (40-80) H 03/06/17 04:53 Lymphocytes 1 % (20-50) L 03/06/17 04:53 Monocytes 4 % (2-10) 03/06/17 04:53 Eosinophils 0 % (0-5) 03/03/17 21:04 Basophils 0 % (0-3) 03/03/17 21:04 Platelet Estimate DECREASED PLATELETS (NORMAL) 03/06/17 04:53 Platelet Morphology NORMAL (NORMAL) 03/06/17 04:53 RBC Morph Micro Appear NORMAL (NORMAL) 03/03/17 21:04 Eos Smear Source URINE 03/05/17 05:30 Eos Smear Total Cells NONE SEEN (NONE SEEN) 03/05/17 05:30 PT 10.2 SECONDS (9.5-11.5) 03/03/17 21:04 INR 0.98 (0.5-1.4) 03/03/17 21:04 PTT (Actin FS) 39.1 SECONDS (26.0-38.0) H 03/06/17 09:35 D-Dimer 3820 ng/mL (100-400) H 03/03/17 21:04 Specimen Source Arterial 03/06/17 09:05 Sample Site Left Radial 03/06/17 09:05 pH 7.28 (7.35-7.45) L 03/06/17 09:05 pCO2 40.0 mmHg (35.0-45.0) 03/06/17 09:05 pO2 60.0 mmHg (80.0-100.0) L 03/06/17 09:05 HCO3 18.8 mEq/L (20.0-26.0) L 03/06/17 09:05 Base Excess -7.5 mEq/L (-3.0-3.0) L 03/06/17 09:05 O2 Saturation 87.0 % (92.0-100.0) L 03/06/17 09:05 Adan Test PASS 03/06/17 09:05 Vent Rate 22 03/06/17 09:05 Inspired O2 60 03/06/17 09:05 Tidal Volume 500 03/06/17 09:05 PEEP 10 03/06/17 09:05 Pressure (ins/psv/peep) NA 03/05/17 12:15 Critical Value PW 03/06/17 09:05 Sodium 135 mEq/L (136-145) L 03/06/17 04:53 Potassium 5.0 mEq/L (3.5-5.1) 03/06/17 04:53 Chloride 103 mEq/L (98-107) 03/06/17 04:53 Carbon Dioxide 19.3 mEq/L (21.0-31.0) L 03/06/17 04:53 Anion Gap 17.7 (7.0-16.0) H 03/06/17 04:53 BUN 93 mg/dL (7-25) H* 03/06/17 04:53 Creatinine 3.1 mg/dL (0.7-1.3) H 03/06/17 04:53 Est GFR ( Amer) TNP 03/06/17 04:53 Est GFR (Non-Af Amer) TNP 03/06/17 04:53 BUN/Creatinine Ratio 30.0 03/06/17 04:53 Glucose 229 mg/dL (70-105) H 03/06/17 04:53 POC Glucose 154 MG/DL (70 - 105) H 03/05/17 20:21 Whole Bld Lactic Acid 2.77 mmol/L (0.60-1.99) H* 03/05/17 06:40 Uric Acid 13.3 mg/dL (4.4-7.6) H 03/05/17 04:38 Calcium 8.4 mg/dL (8.6-10.3) L 03/06/17 04:53 Phosphorus 6.6 mg/dL (2.5-5.0) H 03/05/17 04:38 Magnesium 2.4 mg/dL (1.9-2.7) 03/05/17 04:38 Total Bilirubin 0.9 mg/dL (0.3-1.0) 03/05/17 04:38 AST 18 U/L (13-39) 03/05/17 04:38 ALT 17 U/L (7-52) 03/05/17 04:38 Alkaline Phosphatase 31 U/L (34-104) L 03/05/17 04:38 Ammonia 71 umol/L (16-53) H 03/05/17 04:38 Creatine Kinase 24 U/L (30-223) L 03/03/17 21:04 Troponin I 0.02 ng/mL (0.01-0.05) 03/03/17 21:04 B-Natriuretic Peptide 95.9 pg/mL (5.0-100.0) 03/05/17 04:38 Total Protein 5.7 gm/dL (6.0-8.3) L 03/05/17 04:38 Albumin 3.7 gm/dL (4.2-5.5) L 03/05/17 04:38 Globulin 2.0 gm/dL 03/05/17 04:38 Albumin/Globulin Ratio 1.9 (1.0-1.8) H 03/05/17 04:38 Triglycerides 160 mg/dL (<150) H 03/03/17 21:04 Cholesterol 172 mg/dL (<200) 03/03/17 21:04 LDL Cholesterol Direct 70 mg/dL (75-193) L 03/03/17 21:04 HDL Cholesterol 76 mg/dL (23-92) 03/03/17 21:04 TSH 0.37 uIU/ml (0.34-5.60) 03/05/17 04:38 Urine Source MIDSTREAM 03/05/17 05:30 Urine Color YELLOW 03/05/17 05:30 Urine Clarity CLEAR (CLEAR) 03/05/17 05:30 Urine pH 5.0 (4.6 - 8.0) 03/05/17 05:30 Ur Specific [place] 1.020 (1.005-1.030) 03/05/17 05:30 Urine Protein NEGATIVE mg/dL (NEGATIVE) 03/05/17 05:30 Urine Glucose (UA) NEGATIVE mg/dL (NEGATIVE) 03/05/17 05:30 Urine Ketones NEGATIVE mg/dL (NEGATIVE) 03/05/17 05:30 Urine Blood NEGATIVE (NEGATIVE) 03/05/17 05:30 Urine Nitrate NEGATIVE (NEGATIVE) 03/05/17 05:30 Urine Bilirubin NEGATIVE (NEGATIVE) 03/05/17 05:30 Urine Urobilinogen 0.2 E.U./dL (0.2 - 1.0) 03/05/17 05:30 Ur Leukocyte Esterase NEGATIVE (NEGATIVE) 03/05/17 05:30 Urine RBC 0-2 /hpf (0-5) H 03/05/17 05:30 Urine WBC 0-2 /hpf (0-5) 03/05/17 05:30 Ur Epithelial Cells OCCASIONAL /lpf (FEW) 03/05/17 05:30 Urine Bacteria OCCASIONAL /hpf (NONE SEEN) 03/05/17 05:30 Fine Granular Casts 2-5 /lpf (NONE SEEN) H 03/05/17 05:30 Urine Mucus FEW /lpf (FEW) 03/05/17 05:30 Ur Random Sodium < 10 mmol/L 03/05/17 05:30 Urine Creatinine 109.2 mg/dl (39.0-259.0) 03/05/17 05:30 - Physical Exam Vitals and I&O: Vital Signs Temp 96.7 F 03/06/17 12:00 Pulse 91 03/06/17 12:30 Resp 22 03/06/17 12:00 BP 103/61 03/06/17 12:30 Pulse Ox 95 03/06/17 12:00 Intake & Output 03/05/17 03/06/17 03/06/17 18:59 06:59 18:59 Intake Total 633.11 2014.038 50 Balance 633.11 50 Weight (lbs) 102.228 kg Intake: Intake, IV Amount 433.11 50 Cefepime 1 gm In Sodium 50 50 50 Chloride 0.9% 50 ml @ 100 mls/hr IV Q12HR [facility] Rx#: [id number] Dexamethasone Sodium Phos 54 40 mg In Sodium Chloride 0.9% 50 ml @ 100 mls/hr IV Q24H [facility] Rx#:[id number] Heparin 25,000 Units In 329.11 116.256 D5W 25,000 units In 250 ml @ Titrate IV TITR PRN Rx#:[id number] Norepinephrine 4 mg In 81.115 Dextrose 5% 250 ml @ 8 MCG/MIN 30.48 mls/hr IV TITR PRN Rx#:[id number] Sodium Chloride 0.9% 1, 1500 500 ml @ 500 mls/hr IV . Q3H [facility] Rx#:[id number] Oral 100 Other 100 Other: # Voids 2 # Bowel Movements 0 Active Medications: Current Medications Acetaminophen (Tylenol) 650 mg PO Q6HR PRN PRN Reason: Pain (Mild) Stop: 05/03/17 01:22 Acetaminophen (Tylenol) 650 mg PO Q6HR PRN PRN Reason: Fever > 101 Stop: 05/03/17 01:22 Acetaminophen/Hydrocodone Bitart (Marvin 5mg/325mg) 1 tab PO Q4HR PRN PRN Reason: Pain (Moderate) Stop: 05/03/17 01:22 Acetaminophen/Hydrocodone Bitart (Marvin 5mg/325mg) 2 tab PO Q4HR PRN PRN Reason: Severe Pain Stop: 05/03/17 01:22 Last Admin: 03/06/17 10:15 Dose: 2 tab Al Hydrox/Mg Hydrox/Simethicone (Maalox) 15 ml PO Q3HR PRN PRN Reason: Indigestion Stop: 05/03/17 01:22 Albuterol Sulfate (Albuterol 2.5mg/3ml Neb Ud) 2.5 mg HHN Q4H PRN PRN Reason: Shortness of Breath or Wheeze Stop: 05/03/17 01:56 Last Admin: 03/04/17 08:17 Dose: 2.5 mg Albuterol/Ipratropium (Duoneb Neb) 3 ml HHN Q4HRT [facility]STIANE Stop: 05/03/17 14:59 Last Admin: 03/06/17 11:08 Dose: 3 ml Alprazolam (Xanax) 0.5 mg PO BID CRISTIANE PRN Reason: Protocol Stop: 05/03/17 21:14 Last Admin: 03/06/17 09:57 Dose: 0.5 mg Amiodarone HCl (Cordarone) 200 mg PO BID CRISTIANE Stop: 05/03/17 08:59 Last Admin: 03/06/17 09:57 Dose: Not Given Betamethasone/Clotrimazole (Lotrisone Cream) 1 appl TP BID CRISTIANE Stop: 05/04/17 16:59 Last Admin: 03/06/17 09:56 Dose: 1 appl Chlorhexidine Gluconate (Peridex) 15 ml MM 0800,2000 CRISTIANE Stop: 05/05/17 08:59 Last Admin: 03/06/17 09:58 Dose: 15 ml Famotidine (Pepcid) 20 mg PO DAILY CRISTIANE Stop: 05/03/17 08:59 Last Admin: 03/06/17 09:57 Dose: 20 mg Fluticasone Propionate (Flonase) 1 spr NS DAILY CRISTIANE Stop: 05/03/17 08:59 Last Admin: 03/06/17 09:56 Dose: 1 spr Gabapentin (Neurontin) 100 mg PO DAILY CRISTIANE Stop: 05/03/17 08:59 Last Admin: 03/06/17 09:57 Dose: 100 mg Gabapentin (Neurontin) 200 mg PO HS CRISTIANE Stop: 05/03/17 20:59 Last Admin: 03/05/17 21:13 Dose: 200 mg Norepinephrine Bitartrate 4 mg (/ Dextrose) 254 mls @ 30.48 mls/hr IV TITR PRN ; Protocol; 8 MCG/MIN PRN Reason: BP MAINTENANCE (PER PROTOCOL) Stop: 05/03/17 09:32 Last Admin: 03/06/17 06:00 Dose: 7 mcg/min, 26.67 mls/hr Cefepime HCl 1 gm/ Sodium (Chloride) 50 mls @ 100 mls/hr IV Q12HR [facility]E Stop: 05/03/17 20:59 Last Infusion: 03/06/17 09:30 Dose: Infused Heparin Sodium/Dextrose (Heparin Drip) 25,000 units in 250 mls @ 0 mls/hr IV TITR PRN; Protocol; Titrate PRN Reason: PROTOCOL Stop: 05/03/17 13:30 Last Titration: 03/06/17 06:00 Dose: 8.8 units/kg/hr, 9 mls/hr Dexamethasone Sodium Phosphate (40 mg/ Sodium Chloride) 54 mls @ 100 mls/hr IV Q24H [facility]E Stop: 03/09/17 16:33 Last Infusion: 03/05/17 16:35 Dose: Infused Sodium Chloride (Nacl 0.9%) 1,000 mls @ 75 mls/hr IV .[id number] [facility]E Stop: 05/05/17 07:13 Last Admin: 03/06/17 07:30 Dose: 75 mls/hr Lactulose (Cephulac) 30 gm PO Q6H [facility] Stop: 05/04/17 20:59 Last Admin: 03/06/17 10:31 Dose: 30 gm Lorazepam (Ativan) 2 mg IVP Q4HR PRN; Protocol PRN Reason: Agitation Stop: 05/04/17 11:53 Last Admin: 03/06/17 08:50 Dose: 2 mg Magnesium Hydroxide (Milk Of Magnesia) 30 ml PO HS PRN PRN Reason: Constipation Stop: 05/03/17 01:22 Miscellaneous (Pharmacy To Dose) 1 ea MC PRN CRISTIANE Stop: 05/03/17 11:59 Miscellaneous (Probiotic Screen) 1 ea PRN PRN PRN Reason: PROTOCOL Stop: 05/04/17 13:57 Tamsulosin HCl (Flomax) 0.4 mg PO HS CRISTIANE Stop: 05/03/17 20:59 Last Admin: 03/05/17 21:13 Dose: 0.4 mg Triamcinolone Acetonide (Kenalog 0.1%) 1 appl TP BID CRISTIANE Stop: 05/03/17 08:59 Last Admin: 03/06/17 09:56 Dose: 1 appl General: No acute distress HEENT: Atraumatic, Mucous membr. moist/pink Neck: Supple, +2 carotid pulse wo bruit Cardiovascular: Regular rate, Normal S1, Normal S2 Lungs: Other (few rhonchi, decreased BS) Abdomen: Bowel sounds, Soft Extremities: Edema (mild) Neurological: Sensation intact Skin: no Rash Psych/Mental Status: Mood NL - Procedures Procedures: Procedures Procedure Code Date ASSISTANCE WITH RESPIRATORY VENTILATION, 24-96 HRS, CPAP [id number] 03/03/17 POS AIRWAY PRESSURE CPAP 80345 03/03/17 Assessment/Plan - Assessment Assessment: TIESHA on CKD NHL s/p Mediastinoscopy w/ biopsy Acute resp failure on vent P. A. fib B/L DVT Morbid Obesity JEAN Left LL HAP - Plan Plan: Lab - Result Diagrams 03/05/17 04:38 03/05/17 04:38 Current Medications Acetaminophen (Tylenol) 650 mg PO Q6HR PRN PRN Reason: Pain (Mild) Stop: 05/03/17 01:22 Acetaminophen (Tylenol) 650 mg PO Q6HR PRN PRN Reason: Fever > 101 Stop: 05/03/17 01:22 Acetaminophen/Hydrocodone Bitart (Marvin 5mg/325mg) 1 tab PO Q4HR PRN PRN Reason: Pain (Moderate) Stop: 05/03/17 01:22 Acetaminophen/Hydrocodone Bitart (Marvin 5mg/325mg) 2 tab PO Q4HR PRN PRN Reason: Severe Pain Stop: 05/03/17 01:22 Al Hydrox/Mg Hydrox/Simethicone (Maalox) 15 ml PO Q3HR PRN PRN Reason: Indigestion Stop: 05/03/17 01:22 Albuterol Sulfate (Albuterol 2.5mg/3ml Neb Ud) 2.5 mg HHN Q4H PRN PRN Reason: Shortness of Breath or Wheeze Stop: 05/03/17 01:56 Last Admin: 03/04/17 08:17 Dose: 2.5 mg Albuterol/Ipratropium (Duoneb Neb) 3 ml HHN Q4HRT CRISTIANE Stop: 05/03/17 14:59 Last Admin: 03/05/17 12:55 Dose: 3 ml Alprazolam (Xanax) 0.5 mg PO BID CRISTIANE PRN Reason: Protocol Stop: 05/03/17 21:14 Last Admin: 03/05/17 09:18 Dose: 0.5 mg Amiodarone HCl (Cordarone) 200 mg PO BID [facility] Stop: 05/03/17 08:59 Last Admin: 03/05/17 09:18 Dose: 200 mg Famotidine (Pepcid) 20 mg PO DAILY [facility] Stop: 05/03/17 08:59 Last Admin: 03/05/17 09:18 Dose: 20 mg Fluticasone Propionate (Flonase) 1 spr NS DAILY CRISTIANE Stop: 05/03/17 08:59 Last Admin: 03/05/17 09:24 Dose: 1 spr Gabapentin (Neurontin) 100 mg PO DAILY CRISTIANE Stop: 05/03/17 08:59 Last Admin: 03/05/17 09:18 Dose: 100 mg Gabapentin (Neurontin) 200 mg PO HS CRISTIANE Stop: 05/03/17 20:59 Last Admin: 03/04/17 20:51 Dose: 200 mg Ceftriaxone Sodium 1 gm/ (Sodium Chloride) 50 mls @ 100 mls/hr IV Q24HR [facility]E Stop: 05/03/17 21:59 Last Infusion: 03/04/17 22:45 Dose: Infused Norepinephrine Bitartrate 4 mg (/ Dextrose) 254 mls @ 30.48 mls/hr IV TITR PRN ; Protocol; 8 MCG/MIN PRN Reason: BP MAINTENANCE (PER PROTOCOL) Stop: 05/03/17 09:32 Last Titration: 03/05/17 05:00 Dose: 0 mcg/min, 0 mls/hr Cefepime HCl 1 gm/ Sodium (Chloride) 50 mls @ 100 mls/hr IV Q12HR [facility] Stop: 05/03/17 20:59 Last Infusion: 03/05/17 10:20 Dose: Infused Heparin Sodium/Dextrose (Heparin Drip) 25,000 units in 250 mls @ 0 mls/hr IV TITR PRN; Protocol; Titrate PRN Reason: PROTOCOL Stop: 05/03/17 13:30 Last Admin: 03/05/17 12:00 Dose: 17 units/kg/hr, 17.242 mls/hr Lorazepam (Ativan) 2 mg IVP Q4HR PRN; Protocol PRN Reason: Agitation Stop: 05/04/17 11:53 Magnesium Hydroxide (Milk Of Magnesia) 30 ml PO HS PRN PRN Reason: Constipation Stop: 05/03/17 01:22 Methylprednisolone Sodium Succinate (Solu-Medrol) 80 mg IV Q6HR [facility]E Stop: 05/03/17 17:59 Last Admin: 03/05/17 11:59 Dose: 80 mg Miscellaneous (Umeclidinium Brm/Vilanterol Tr [Anoro Ellipta 62.5-25 Mcg Inh]) 1 each IH DAILY CRISTIANE Stop: 05/03/17 08:59 Miscellaneous (Pharmacy To Dose) 1 ea MC PRN CRISTIANE Stop: 05/03/17 11:59 Prednisone (Deltasone) 40 mg PO DAILY CRISTIANE Stop: 05/03/17 08:59 Last Admin: 03/05/17 09:17 Dose: 40 mg Tamsulosin HCl (Flomax) 0.4 mg PO HS CRISTIANE Stop: 05/03/17 20:59 Last Admin: 03/04/17 20:51 Dose: 0.4 mg Triamcinolone Acetonide (Kenalog 0.1%) 1 appl TP BID CRISTIANE Stop: 05/03/17 08:59 Last Admin: 03/05/17 09:24 Dose: 1 appl Lab - Result Diagrams 03/06/17 04:53 03/06/17 04:53 BUN/CR up to 93/3.1 Na improved to 135 monitor fluid status closely awaiting bladder US needs urology consult for placement of [place] On Levo 6 mcg, Nephro 40ml/hr, NS @ 75 ml/hr f/u electrolytes, cbc Nutritional Asmnt/Malnutr-PDOC - Dietary Evaluation Malnutrition Findings (Please click <Entered> for more info): Nutritional Asmnt/Malnutrition Start: 03/05/17 12: 23 Text: Status: Complete Freq: Document 03/05/17 12:23 GSUN (Rec: 03/05/17 12:59 GSUN [id number]) Nutritional Asmnt/Malnutrition Patient General Information Nutritional Screening Consult Diagnosis Severe hypotension, hx respiratory distress with respiratory failure Pertinent Medical Hx/Surgical Hx Non-Hodgkin's lymphoma, inferior vena cava filter placement, DVTs, intracranial hemorrhage 3 years ago Subjective Information 76 [address] consult for wounds. Pt undergoing intubation during visit. Observed ngtube in place for meds. Spoke to RN BRIE Duval stated 0% meal intake since adm prior to intubation. Current Diet Order/ Nutrition Support NPO Pertinent Medications MOM, Solu-Medrol Pertinent Labs Potassium 5.0 WNL, CO2 19.8L, BUN 79H, creatinine 2.5H, glucose 146H, phsophorus 6.6H, ammonia 71H Nutritional Hx/Data Height 1.8 m Height (Calculated Centimeters) 180.3 Current Weight (lbs) 102.058 kg Weight (Calculated Kilograms) 102.1 Weight (Calculated Grams) 273397.3 [place] Body Weight 172 Weight Status Obese GI Symptoms Food Allergies No Usual diet at home [place]: [place], [facility] soft Skin Integrity/Comment: [place] 14. Wound care 03/04: few moisture wounds and possible fungal infect Current %PO Negligible < 25% Estimated Nutritional Goals Calories/Kcals/Kg IBW 172lb/78.2kg (newly intubated, resp distress Kcals Calculated 1720-1955kcal (22-25kcal/kg, newly intubated, resp distress ) Protein Calculated 94-117g (1.2-1.5g/kg, renal, critical obese) Fluid: ml Per MD Nutritional Problem 1. Problem Problem Impaired nutrient utilization related to Etiology CKD stage III (03/04 MD note) aeb Signs/Symptoms: BUN 79H, creatinine 2.5H, phsophorus 6.6H Intervention/Recommendation Comments 1. Ng tube in place. If enteral nutrition suggested, recommend Novasource Renal at 40ml/hr x 24hrs, providing 960ml total volume, 1920kcal, 87g protein. Hypocaloric with consideration of obese, newly intubated. RD to monitor respiratory status and adjust rate during follow up. 2. If pt is extubated and able to resume oral diet, recommend [facility] soft renal diet . Recommend swallow eval as needed. Expected Outcomes/Goals Expected Outcomes/Goals 1. Pt to meet at least 60% of estimated nutritinoal needs in next 2 days.
[2017-03-06] MEDS: Heparin 25,000 Units In D5W 25,000 UNITS/250 ML BAG IV PRN (14:22)
[2017-03-06 14:57] LABS: MICROALBUMIN RANDOM RUINE 13.6
[2017-03-06 15:26] LABS: HEMATOCRIT 35.2 % (41.0-60); MEAN CELL VOLUME 93.9 fl (80-99); MEAN CORPUSCULAR HEMOGLOBIN 31.6 pg (27.0-31.0); MEAN CORPUSCULAR HGB CONC 33.6 pg (28.0-36.0); MEAN PLATELET VOLUME 8.2 fl; NEUTROPHILE ABSOLUTE 11.3 Th/cmm (1.8-8.0); RED BLOOD COUNT 3.75 Mil/cmm (3.80-5.80); RED CELL DISTRIBUTION WIDTH 16.6 % (11.5-20.0); WHITE BLOOD COUNT 11.9 Th/cmm (4.8-10.8)
[2017-03-06 15:27] LABS: PLATELET COUNT 90 Th/cmm (150-400)
[2017-03-06 15:28] LABS: HEMOGLOBIN 11.9 gm/dL (12-16)
[2017-03-06 15:49] LABS: BAND NEUTROPHILE 2 % (0-10); NEUTROPHILS 93 % (40-80); PLATELET ESTIMATE DECREASED PLATELETS (NORMAL); PLATELET MORPHOLOGY NORMAL (NORMAL)
--- NOTE | 2017-03-06 16:28 | General Progress Note ---
Subjective - Review of Systems Service Date: 03/06/17 Subjective: on vent Objective - Results Result Diagrams: 03/06/17 15:08 03/06/17 04:53 Recent Labs: Laboratory Last Values WBC 11.9 Th/cmm (4.8-10.8) H 03/06/17 15:08 RBC 3.75 Mil/cmm (3.80-5.80) L 03/06/17 15:08 Hgb 11.9 gm/dL (12-16) L 03/06/17 15:08 Hct 35.2 % (41.0-60) L 03/06/17 15:08 MCV 93.9 fl (80-99) 03/06/17 15:08 MCH 31.6 pg (27.0-31.0) H 03/06/17 15:08 MCHC Differential 33.6 pg (28.0-36.0) 03/06/17 15:08 RDW 16.6 % (11.5-20.0) 03/06/17 15:08 Plt Count 90 Th/cmm (150-400) L D 03/06/17 15:08 MPV 8.2 fl 03/06/17 15:08 Band Neutrophils % 2 % (0-10) 03/06/17 15:08 Neutrophils (Manual) 93 % (40-80) H 03/06/17 15:08 Lymphocytes 3 % (20-50) L 03/06/17 15:08 Monocytes 2 % (2-10) 03/06/17 15:08 Eosinophils 0 % (0-5) 03/03/17 21:04 Basophils 0 % (0-3) 03/03/17 21:04 Platelet Estimate DECREASED PLATELETS (NORMAL) 03/06/17 15:08 Platelet Morphology NORMAL (NORMAL) 03/06/17 15:08 RBC Morph Micro Appear NORMAL (NORMAL) 03/03/17 21:04 Eos Smear Source URINE 03/05/17 05:30 Eos Smear Total Cells NONE SEEN (NONE SEEN) 03/05/17 05:30 PT 10.2 SECONDS (9.5-11.5) 03/03/17 21:04 INR 0.98 (0.5-1.4) 03/03/17 21:04 PTT (Actin FS) 46.1 SECONDS (26.0-38.0) H 03/06/17 15:08 D-Dimer 3820 ng/mL (100-400) H 03/03/17 21:04 Specimen Source Arterial 03/06/17 09:05 Sample Site Left Radial 03/06/17 09:05 pH 7.28 (7.35-7.45) L 03/06/17 09:05 pCO2 40.0 mmHg (35.0-45.0) 03/06/17 09:05 pO2 60.0 mmHg (80.0-100.0) L 03/06/17 09:05 HCO3 18.8 mEq/L (20.0-26.0) L 03/06/17 09:05 Base Excess -7.5 mEq/L (-3.0-3.0) L 03/06/17 09:05 O2 Saturation 87.0 % (92.0-100.0) L 03/06/17 09:05 Adan Test PASS 03/06/17 09:05 Vent Rate 22 03/06/17 09:05 Inspired O2 60 03/06/17 09:05 Tidal Volume 500 03/06/17 09:05 PEEP 10 03/06/17 09:05 Pressure (ins/psv/peep) NA 03/05/17 12:15 Critical Value PW 03/06/17 09:05 Sodium 135 mEq/L (136-145) L 03/06/17 04:53 Potassium 5.0 mEq/L (3.5-5.1) 03/06/17 04:53 Chloride 103 mEq/L (98-107) 03/06/17 04:53 Carbon Dioxide 19.3 mEq/L (21.0-31.0) L 03/06/17 04:53 Anion Gap 17.7 (7.0-16.0) H 03/06/17 04:53 BUN 93 mg/dL (7-25) H* 03/06/17 04:53 Creatinine 3.1 mg/dL (0.7-1.3) H 03/06/17 04:53 Est GFR ( Amer) TNP 03/06/17 04:53 Est GFR (Non-Af Amer) TNP 03/06/17 04:53 BUN/Creatinine Ratio 30.0 03/06/17 04:53 Glucose 229 mg/dL (70-105) H 03/06/17 04:53 POC Glucose 154 MG/DL (70 - 105) H 03/05/17 20:21 Hemoglobin A1c % 5.6 % (4.0-6.0) 03/06/17 04:53 Whole Bld Lactic Acid 2.77 mmol/L (0.60-1.99) H* 03/05/17 06:40 Uric Acid 13.3 mg/dL (4.4-7.6) H 03/05/17 04:38 Calcium 8.4 mg/dL (8.6-10.3) L 03/06/17 04:53 Phosphorus 6.6 mg/dL (2.5-5.0) H 03/05/17 04:38 Magnesium 2.4 mg/dL (1.9-2.7) 03/05/17 04:38 Total Bilirubin 0.9 mg/dL (0.3-1.0) 03/05/17 04:38 AST 18 U/L (13-39) 03/05/17 04:38 ALT 17 U/L (7-52) 03/05/17 04:38 Alkaline Phosphatase 31 U/L (34-104) L 03/05/17 04:38 Ammonia 71 umol/L (16-53) H 03/05/17 04:38 Creatine Kinase 24 U/L (30-223) L 03/03/17 21:04 Troponin I 0.02 ng/mL (0.01-0.05) 03/03/17 21:04 B-Natriuretic Peptide 95.9 pg/mL (5.0-100.0) 03/05/17 04:38 Total Protein 5.7 gm/dL (6.0-8.3) L 03/05/17 04:38 Albumin 3.7 gm/dL (4.2-5.5) L 03/05/17 04:38 Globulin 2.0 gm/dL 03/05/17 04:38 Albumin/Globulin Ratio 1.9 (1.0-1.8) H 03/05/17 04:38 Triglycerides 160 mg/dL (<150) H 03/03/17 21:04 Cholesterol 172 mg/dL (<200) 03/03/17 21:04 LDL Cholesterol Direct 70 mg/dL (75-193) L 03/03/17 21:04 HDL Cholesterol 76 mg/dL (23-92) 03/03/17 21:04 TSH 0.37 uIU/ml (0.34-5.60) 03/05/17 04:38 Urine Source MIDSTREAM 03/05/17 05:30 Urine Color YELLOW 03/05/17 05:30 Urine Clarity CLEAR (CLEAR) 03/05/17 05:30 Urine pH 5.0 (4.6 - 8.0) 03/05/17 05:30 Ur Specific [place] 1.020 (1.005-1.030) 03/05/17 05:30 Urine Protein NEGATIVE mg/dL (NEGATIVE) 03/05/17 05:30 Urine Glucose (UA) NEGATIVE mg/dL (NEGATIVE) 03/05/17 05:30 Urine Ketones NEGATIVE mg/dL (NEGATIVE) 03/05/17 05:30 Urine Blood NEGATIVE (NEGATIVE) 03/05/17 05:30 Urine Nitrate NEGATIVE (NEGATIVE) 03/05/17 05:30 Urine Bilirubin NEGATIVE (NEGATIVE) 03/05/17 05:30 Urine Urobilinogen 0.2 E.U./dL (0.2 - 1.0) 03/05/17 05:30 Ur Leukocyte Esterase NEGATIVE (NEGATIVE) 03/05/17 05:30 Urine RBC 0-2 /hpf (0-5) H 03/05/17 05:30 Urine WBC 0-2 /hpf (0-5) 03/05/17 05:30 Ur Epithelial Cells OCCASIONAL /lpf (FEW) 03/05/17 05:30 Urine Bacteria OCCASIONAL /hpf (NONE SEEN) 03/05/17 05:30 Fine Granular Casts 2-5 /lpf (NONE SEEN) H 03/05/17 05:30 Urine Mucus FEW /lpf (FEW) 03/05/17 05:30 Ur Random Sodium < 10 mmol/L 03/05/17 05:30 Urine Creatinine 117.2 mg/dl 03/05/17 05:30 Urine Microalbumin 13.6 03/05/17 05:30 Microalb/Creat Ratio 11.6 03/05/17 05:30 - Physical Exam Vitals and I&O: Vital Signs Temp 97.1 F 03/06/17 16:00 Pulse 94 03/06/17 16:00 Resp 23 03/06/17 16:00 BP 113/61 03/06/17 16:00 Pulse Ox 95 03/06/17 16:00 Intake & Output 03/05/17 03/06/17 03/06/17 18:59 06:59 18:59 Intake Total 633.11 104.634 Balance 633.11 104.634 Weight (lbs) 102.228 kg Intake: Intake, IV Amount 433.11 104.634 Cefepime 1 gm In Sodium 50 50 50 Chloride 0.9% 50 ml @ 100 mls/hr IV Q12HR CRISTIANE Rx#: [id number] Dexamethasone Sodium Phos 54 40 mg In Sodium Chloride 0.9% 50 ml @ 100 mls/hr IV Q24H CRISTIANE Rx#:[id number] Heparin 25,000 Units In 329.11 116.256 54.634 D5W 25,000 units In 250 ml @ Titrate IV TITR PRN Rx#:[id number] Norepinephrine 4 mg In 81.115 Dextrose 5% 250 ml @ 8 MCG/MIN 30.48 mls/hr IV TITR PRN Rx#:[id number] Sodium Chloride 0.9% 1, 1500 500 ml @ 500 mls/hr IV . Q3H CRISTIANE Rx#:[id number] Oral 100 Other 100 Other: # Voids 2 # Bowel Movements 0 Active Medications: Current Medications Acetaminophen (Tylenol) 650 mg PO Q6HR PRN PRN Reason: Pain (Mild) Stop: 05/03/17 01:22 Acetaminophen (Tylenol) 650 mg PO Q6HR PRN PRN Reason: Fever > 101 Stop: 05/03/17 01:22 Acetaminophen/Hydrocodone Bitart (Snow 5mg/325mg) 1 tab PO Q4HR PRN PRN Reason: Pain (Moderate) Stop: 05/03/17 01:22 Acetaminophen/Hydrocodone Bitart (Snow 5mg/325mg) 2 tab PO Q4HR PRN PRN Reason: Severe Pain Stop: 05/03/17 01:22 Last Admin: 03/06/17 10:15 Dose: 2 tab Al Hydrox/Mg Hydrox/Simethicone (Maalox) 15 ml PO Q3HR PRN PRN Reason: Indigestion Stop: 05/03/17 01:22 Albuterol Sulfate (Albuterol 2.5mg/3ml Neb Ud) 2.5 mg HHN Q4H PRN PRN Reason: Shortness of Breath or Wheeze Stop: 05/03/17 01:56 Last Admin: 03/04/17 08:17 Dose: 2.5 mg Albuterol/Ipratropium (Duoneb Neb) 3 ml HHN Q4HRT CRISTIANE Stop: 05/03/17 14:59 Last Admin: 03/06/17 15:07 Dose: 3 ml Alprazolam (Xanax) 0.5 mg PO BID CRISTIANE PRN Reason: Protocol Stop: 05/03/17 21:14 Last Admin: 03/06/17 09:57 Dose: 0.5 mg Amiodarone HCl (Cordarone) 200 mg PO BID CRISTIANE Stop: 05/03/17 08:59 Last Admin: 03/06/17 09:57 Dose: Not Given Betamethasone/Clotrimazole (Lotrisone Cream) 1 appl TP BID CRISTIANE Stop: 05/04/17 16:59 Last Admin: 03/06/17 09:56 Dose: 1 appl Chlorhexidine Gluconate (Peridex) 15 ml MM 0800,2000 CRISTIANE Stop: 05/05/17 08:59 Last Admin: 03/06/17 09:58 Dose: 15 ml Famotidine (Pepcid) 20 mg PO DAILY CRISTIANE Stop: 05/03/17 08:59 Last Admin: 03/06/17 09:57 Dose: 20 mg Fluticasone Propionate (Flonase) 1 spr NS DAILY CRISTIANE Stop: 05/03/17 08:59 Last Admin: 03/06/17 09:56 Dose: 1 spr Gabapentin (Neurontin) 100 mg PO DAILY CRISTIANE Stop: 05/03/17 08:59 Last Admin: 03/06/17 09:57 Dose: 100 mg Gabapentin (Neurontin) 200 mg PO HS CRISTIANE Stop: 05/03/17 20:59 Last Admin: 03/05/17 21:13 Dose: 200 mg Norepinephrine Bitartrate 4 mg (/ Dextrose) 254 mls @ 30.48 mls/hr IV TITR PRN ; Protocol; 8 MCG/MIN PRN Reason: BP MAINTENANCE (PER PROTOCOL) Stop: 05/03/17 09:32 Last Admin: 03/06/17 06:00 Dose: 7 mcg/min, 26.67 mls/hr Cefepime HCl 1 gm/ Sodium (Chloride) 50 mls @ 100 mls/hr IV Q12HR CRISTIANE Stop: 05/03/17 20:59 Last Infusion: 03/06/17 09:30 Dose: Infused Heparin Sodium/Dextrose (Heparin Drip) 25,000 units in 250 mls @ 0 mls/hr IV TITR PRN; Protocol; Titrate PRN Reason: PROTOCOL Stop: 05/03/17 13:30 Last Admin: 03/06/17 14:22 Dose: 10 units/kg/hr, 10.142 mls/hr Dexamethasone Sodium Phosphate (40 mg/ Sodium Chloride) 54 mls @ 100 mls/hr IV Q24H CRISTIANE Stop: 03/09/17 16:33 Last Infusion: 03/05/17 16:35 Dose: Infused Sodium Chloride (Nacl 0.9%) 1,000 mls @ 75 mls/hr IV .[id number] CRISTIANE Stop: 05/05/17 07:13 Last Admin: 03/06/17 07:30 Dose: 75 mls/hr Lactulose (Cephulac) 30 gm PO Q6H CRISTIANE Stop: 05/04/17 20:59 Last Admin: 03/06/17 10:31 Dose: 30 gm Lorazepam (Ativan) 2 mg IVP Q4HR PRN; Protocol PRN Reason: Agitation Stop: 05/04/17 11:53 Last Admin: 03/06/17 14:21 Dose: 2 mg Magnesium Hydroxide (Milk Of Magnesia) 30 ml PO HS PRN PRN Reason: Constipation Stop: 05/03/17 01:22 Miscellaneous (Pharmacy To Dose) 1 ea PRN CRISTIANE Stop: 05/03/17 11:59 Miscellaneous (Probiotic Screen) 1 ea PRN PRN PRN Reason: PROTOCOL Stop: 05/04/17 13:57 Tamsulosin HCl (Flomax) 0.4 mg PO HS CRISTIANE Stop: 05/03/17 20:59 Last Admin: 03/05/17 21:13 Dose: 0.4 mg Triamcinolone Acetonide (Kenalog 0.1%) 1 appl TP BID CRISTIANE Stop: 05/03/17 08:59 Last Admin: 03/06/17 09:56 Dose: 1 appl Physical Exam: intubated, confused no bleeding abd soft no urine output General: No acute distress HEENT: Atraumatic, Mucous membr. 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, myc and bcl2 abnormality * DVT/PE * RESPIRATORY FAILURE * CHF * THROMBOCYTOPENIA SECONDARY TO CONSUMPTION IN THROMBOSIS/ improving VERY POOR PROGNOSIS CONTINUE HEPARIN STARTed DECADRON HIGH DOSE Nutritional Asmnt/Malnutr-PDOC - Dietary Evaluation Malnutrition Findings (Please click <Entered> for more info): Nutritional Asmnt/Malnutrition Start: 03/05/17 12: 23 Text: Status: Complete Freq: Document 03/05/17 12:23 GSUN (Rec: 03/05/17 12:59 GSUN [id number]) Nutritional Asmnt/Malnutrition Patient General Information Nutritional Screening Consult Diagnosis Severe hypotension, hx respiratory distress with respiratory failure Pertinent Medical Hx/Surgical Hx Non-Hodgkin's lymphoma, inferior vena cava filter placement, DVTs, intracranial hemorrhage 3 years ago Subjective Information [address] consult for wounds. Pt undergoing intubation during visit. Observed ngtube in place for meds. Spoke to RN BRIE Duval stated 0% meal intake since adm prior to intubation. Current Diet Order/ Nutrition Support NPO Pertinent Medications MOM, Solu-Medrol Pertinent Labs Potassium 5.0 WNL, CO2 19.8L, BUN 79H, creatinine 2.5H, glucose 146H, phsophorus 6.6H, ammonia 71H Nutritional Hx/Data Height 1.8 m Height (Calculated Centimeters) 180.3 Current Weight (lbs) 102.058 kg Weight (Calculated Kilograms) 102.1 Weight (Calculated Grams) 075989.3 [place] Body Weight 172 Weight Status Obese GI Symptoms Food Allergies No Usual diet at home [place]: [place], [facility] soft Skin Integrity/Comment: [place] 14. Wound care 03/04: few moisture wounds and possible fungal infect Current %PO Negligible < 25% Estimated Nutritional Goals Calories/Kcals/Kg IBW 172lb/78.2kg (newly intubated, resp distress Kcals Calculated 1720-1955kcal (22-25kcal/kg, newly intubated, resp distress ) Protein Calculated 94-117g (1.2-1.5g/kg, renal, critical obese) Fluid: ml Per MD Nutritional Problem 1. Problem Problem Impaired nutrient utilization related to Etiology CKD stage III (03/04 MD note) aeb Signs/Symptoms: BUN 79H, creatinine 2.5H, phsophorus 6.6H Intervention/Recommendation Comments 1. Ng tube in place. If enteral nutrition suggested, recommend Novasource Renal at 40ml/hr x 24hrs, providing 960ml total volume, 1920kcal, 87g protein. Hypocaloric with consideration of obese, newly intubated. RD to monitor respiratory status and adjust rate during follow up. 2. If pt is extubated and able to resume oral diet, recommend mech soft renal diet . Recommend swallow eval as needed. Expected Outcomes/Goals Expected Outcomes/Goals 1. Pt to meet at least 60% of estimated nutritinoal needs in next 2 days.
[2017-03-06] MEDS: Dexamethasone Sodium Phos 40 MG in Sodium Chloride 0.9% 50 ML IV SCH (16:35)
--- NOTE | 2017-03-07 05:21 | Progress Notes ---
DATE: SUBJECTIVE: The patient was seen in his room, lying in the bed. The patient is a poor historian at this time due to medical condition. Otherwise the patient appears to be in no acute distress. The patient's current condition is guarded. OBJECTIVE: VITAL SIGNS: Blood pressure 111/61, heart rate of 100, 95% via ventilator. HEENT: Head is atraumatic and normocephalic. Eyes: Bilateral conjunctivae are clear. Bilateral pupils are sluggish. Orally intubated. NECK: Supple. No JVD. CARDIOVASCULAR: S1 and S2 without murmur. Sinus rhythm on the monitor. PULMONARY: Fine scattered rhonchi noted. GASTROINTESTINAL: Soft and nontender without guarding. Positive bowel sounds. MUSCULOSKELETAL: No clubbing, no cyanosis noted. EXTREMITIES: Bilateral lower extremity edema +1 noted. ASSESSMENT: 1. Ventilator-dependent respiratory failure. 2. Pneumonia. 3. Dysphagia. 4. Hypotension. 5. Deep vein thrombosis. 6. Congestive heart failure. PLAN: We will keep the patient in ICU. The patient's condition is guarded. We will titrate Levophed accordingly. We will continue heparin for DVT management. We will monitor the patient's x-ray and blood gases. We will try to wean the patient as tolerated. Treatment plans were discussed with the patient's nurse. Treatment plans were discussed with Dr. Williamson. JOB# [id number]
--- NOTE | 2017-03-07 10:14 | Diagnostic Imaging Report ---
Renal ultrasound HISTORY: Oliguria The exam is very limited due to difficulty in patient positioning. Poor delineation of the renal margins and detail. The right kidney measures approximately 10.1 x 5.2 x 5.2 cm. A 2.5 cm cyst is noted in the upper cortex. No hydronephrosis. Limited delineation of the margins of the left kidney that measures approximately 11.0 x 6.7 x 5.9 cm. A 2.7 cm sonolucent lesion is noted in the upper cortex consistent with a cyst. No hydronephrosis. There is a distended urinary bladder. No intraluminal abnormalities are seen. Post void assessment could not be obtained. IMPRESSION: 1. Limited exam particularly of the left kidney related to difficulty in patient positioning 2. Bilateral renal cysts 3. No hydronephrosis 4. Distended urinary bladder. Bladder outlet obstruction cannot be excluded.
== END 2017-03-06 23:50 | disposition short-term general hospital (02) | DRG 871 ==
LOC: ER 20:36 → TELE 23:50 → ICU 03-04 09:28
PROVIDERS: ADMIT Internal Medicine; ATTEND Internal Medicine
PROC: 5A09357 Assistance with Respiratory Ventilation, Less than 24 Consecutive Hours, Continuous Positive Airway Pressure (ICD-10-PCS; 2017-03-04)
PROC: 5A1945Z Respiratory Ventilation, 24-96 Consecutive Hours (ICD-10-PCS; principal; 2017-03-05)
PROC: 0BH17EZ Insertion of Endotracheal Airway into Trachea, Via Natural or Artificial Opening (ICD-10-PCS; 2017-03-05)
DX: A41.9 Sepsis, unspecified organism (principal); I26.99 Other pulmonary embolism without acute cor pulmonale; J96.20 Acute and chronic respiratory failure, unspecified whether with hypoxia or hypercapnia; N17.9 Acute kidney failure, unspecified; Z99.11 Dependence on respirator [ventilator] status; J90 Pleural effusion, not elsewhere classified; J18.1 Lobar pneumonia, unspecified organism; N18.6 End stage renal disease; J44.0 Chronic obstructive pulmonary disease with (acute) lower respiratory infection; E87.1 Hypo-osmolality and hyponatremia; C83.30 Diffuse large B-cell lymphoma, unspecified site; I82.413 Acute embolism and thrombosis of femoral vein, bilateral; I82.432 Acute embolism and thrombosis of left popliteal vein; N40.0 Benign prostatic hyperplasia without lower urinary tract symptoms; E66.9 Obesity, unspecified; I25.10 Atherosclerotic heart disease of native coronary artery without angina pectoris; E78.5 Hyperlipidemia, unspecified; F17.210 Nicotine dependence, cigarettes, uncomplicated; E86.0 Dehydration; I50.9 Heart failure, unspecified; I48.0 Paroxysmal atrial fibrillation; Y95 Nosocomial condition; D69.6 Thrombocytopenia, unspecified; R13.10 Dysphagia, unspecified; Z68.32 Body mass index [BMI] 32.0-32.9, adult; Q55.64 Hidden penis; Z88.1 Allergy status to other antibiotic agents; Z86.718 Personal history of other venous thrombosis and embolism; Z79.01 Long term (current) use of anticoagulants; Z88.2 Allergy status to sulfonamides; Z83.3 Family history of diabetes mellitus; Z82.49 Family history of ischemic heart disease and other diseases of the circulatory system; Z88.8 Allergy status to other drugs, medicaments and biological substances
CPT/HCPCS: 36415-UA; 36600-90; 70450-TC; 71010-TC; 76770-TC; 80048-TC; 80053-TC; 80061-TC; 81001-TC; 81015-TC; 82043-90; 82140-TC; 82550-TC; 82570-TC; 82803-TC; 82948-90; 83036-90; 83605; 83735-TC; 83880-TC; 83930-90; 84100-TC; 84300-TC; 84443-TC; 84484-TC; 84550-TC; 85007-TC; 85027-TC; 85379-TC; 85610-TC; 85730-TC; 87070; 93005; 93970-TC-50; 94003; 94660; 94760; A9540; A9567; J0692; J0696; J1644; J1940; J2060; J2930; J7030; J7040; J7613; X3904; X6452; Z7610